=== PATIENT | male | born 1930 | race Caucasian/White ===

== ENCOUNTER 2016-06-09 13:45 | Inpatient (IN) | payer OTHER, MEDICARE ==
[2016-06-09] VITALS (10 sets, daily range): BP systolic 109–124; BP diastolic 52–65; PULSE 69–77; RESP 16–22; TEMP 97.7–98.3; O2SAT 97–100
[~2016-06-09] VITALS: Ht 172.7 cm; Wt 70.0 kg
[~2016-06-09 13:45] MED LIST: APIX2.5T PO; ATOR10TA PO; CALTTAB5 PO; CARV3.12 PO; ECOT81TA2 PO; FERR65TA PO; FURO1TAB93 PO; LEVO.025 PO; LISI-357 PO; PACE200T4 PO; TAB-TAB PO
--- NOTE | 2016-06-09 15:35 | PD ---
HPI Chief Complaint: Respiratory Symptoms Time Seen by Provider: 15:31 Travel History International Travel<30 days: No Contact w/Intl Traveler<30days: No Traveled to known affect area: No History of Present Illness HPI 85-year-old male that presents to the ED for evaluation of shortness of breath with exertion. Patient has a significant history of heart disease including mitral valve as well as aortic valve replacement and surgery. Per patient he has been fine until a week ago when she started having the symptoms. Per patient usually walks pretty frequently to stay healthy but for the past week he 's not been able to as he gets very short of breath. Per patient he been going to the mailbox causes him severe shortness of breath and he has to take a breather. Per patient he has no chest pain. 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 He denies any headache or blurred vision or double vision. He denies any shortness of breath on rest. Per patient right now he is doing okay and has no symptoms. He does take blood thinners. Patient has a history of A. fib as well. Denies any bowel movement or urinary issues. Denies any recent injuries or falls other than about a week ago he hit his right head on a cabinet accidentally much of it until he noticed the next day he had a bruise in the area. He denies any blurry vision or double vision. No head injury. Per patient he was a small bump and nothing more. He denies any pain in this area. He denies any other medical problems at this time. PFSH Past Medical History Hx Anticoagulant Therapy: Yes (Eliquis) Blood Disorders: No Heart Rhythm Problems: Yes (has a pacemaker) Cancer: Yes (SKIN) Cardiovascular Problems: Yes High Cholesterol: Yes Chest Pain: No Congestive Heart Failure: Yes Diminished Hearing: No Endocrine: Yes Gastrointestinal Disorders: No Genitourinary: No Hypertension: Yes Immune Disorder: No Implanted Vascular Access Dvce: Yes Musculoskeletal: Yes Neurologic: No Psychiatric: No Reproductive: No Respiratory: Yes Immunizations Current: No Sleep Apnea: No Thyroid Disease: Yes (HYPOTHYROIDISM) Past Surgical History AICD: No Arteriovenous Shunt: No Body Medical Devices: pacemaker Cardiac Surgery: Yes (PACEMAKER ) Coronary Artery Bypass Graft: Yes (TRIPLE 2006) Genitourinary Surgery: Yes (CIRCUMCISION 2001) Insulin Pump: No Joint Replacement: No Oral Surgery: Yes (TONSILECTOMY 1940) Pacemaker: Yes ([employer]ONICS) Tonsillectomy: Yes (1940) Other Surgery: Yes (AORTIC VALVE REPLACEMENT) Social History Alcohol Use: No Tobacco Use: No Substance Use: No Allergies-Medications (Allergen,Severity, Reaction): Coded Allergies: No Known Allergies (Verified , 06/09/16) Reported Meds & Prescriptions Reported Meds & Active Scripts Active Reported Lisinopril 5 mg (Lisinopril) 5 Mg Tab 1 Tab PO DAILY Lasix (Furosemide) 40 Mg Tab 40 Mg PO DAILY Feosol (Ferrous Sulfate) 65 Mg Tab 325 Mg PO BID GIVE WITH LUNCH AND DINNER Eliquis (Apixaban) 2.5 Mg Tab 2.5 Mg PO BID Ecotrin (Aspirin) 81 Mg Tabec 81 Mg PO DAILY Atorvastatin 10 mg (Atorvastatin Calcium) 10 Mg Tab 1 Tab PO HS Pacerone 200 mg (Amiodarone HCl) 200 Mg Tab 100 Mg PO EVERY OTHER DAY Levothyroxine 25 mcg (Levothyroxine Sodium) 25 Mcg Tab 1 Tab PO DAILY Carvedilol 3.125 mg (Carvedilol) 3.125 Mg Tab 3.125 Mg PO BID Multivitamin (Multivitamins) 1 Tab Tab 1 Tab PO DAILY Caltrate 600 (Calcium Carbonate) Tab 1 Tab PO BID Review of Systems General / Constitutional: No: Fever, Chills, Weight Gain, Weight Loss, Other Eyes: No: Diploplia, Blurred Vision, Photophobia, Drainage, Redness, Foreign Body Sensation, Pain, Tearing, Blind Spots, Visual changes, Blindness, Other HENT: No: Headaches, Vertigo, Lightheadedness, Sore Throat, Rhinitis, Rhinorrhea, Congestion, Nosebleed, Neck Stiffness, Neck Pain, Masses, Gingival Bleeding, Dental Difficulties, Ear Discharge, Earache, Other Cardiovascular: No: Chest Pain or Discomfort, Palpitations, Irregular Rhythm, Tachycardia, Diaphoresis, Syncope, Dyspnea on exertion, Varicosities, Edema, Cyanosis, Varicosities, Phlebitis, Claudication, Other Respiratory: Positive: Shortness of Breath, No: Cough, Wheezing, Sneezing, Orthopnea, Hemoptysis, Stridor, Night Sweats, Pleuritic Pain, Other Gastrointestinal: No: Nausea, Vomiting, Diarrhea, Abdominal Pain, Hematemesis, Hematochezia, Constipation, Changes in Bowel Habits, Indigestion, Dysphagia, Loss of Appetite, Other Genitourinary: No: Urgency, Frequency, Dysuria, Nocturia, Hematuria, Decreased Urinary Output, Oliguria, Hesitancy, Dribbling, Incontinence, Pelvic Pain, Flank Pain, Dyspareunia, Discharge, Dysmenorrhea, Menorrhagia, Metorrhagia, Vaginal Bleeding, Other Musculoskeletal: No: Myalgias, Arthralgias, Limited ROM, Weakness, Cramping, Edema, Pain, Atrophy, Other Skin: No Rash, No Itching, No Dryness, No Lumps, No Hives, No Change in Pigmentation, No Change in nails, No Alopecia, No Lesions, No Breast Lumps, No Breast Tenderness, No Breast Swelling, No Other Neurologic: No: Weakness, Dizziness, Syncope, Focal Abnormalities, Coordination Problem, Tremor, Ataxia, Headache, Change in Mentation, Slurred Speech, Paresthesia, Incontinence, Seizures, Sensory Disturbance, Other Psychiatric: No: Anxiety, Depression, Suicidal Ideations, Disorder of Thought, Mood Disorder, Substance Abuse, Homicidal Ideation, Other Endocrine: No: Heat Intolerance, Cold Intolerance, Polyuria, Polydipsia, Other Hematologic/Lymphatic: No: Easy Bruising, Lymph Node Enlargement, Other Physical Exam Narrative GENERAL: SKIN: Warm and dry. HEAD: Atraumatic. Normocephalic. EYES: Pupils equal and round 4 mm reactive to light and accommodation. No scleral icterus. No injection or drainage. ENT: No nasal bleeding or discharge. Mucous membranes pink and moist. Tongue is midline. No uvula deviation. NECK: Trachea midline. No JVD. CARDIOVASCULAR: Regular rate and rhythm. Systolic murmur noted, S3, S4. RESPIRATORY: No accessory muscle use. Clear to auscultation. Breath sounds equal bilaterally. GASTROINTESTINAL: Abdomen soft, non-tender, nondistended. Hepatic and splenic margins not palpable. MUSCULOSKELETAL: Extremities without clubbing, cyanosis, or edema. No obvious deformities. Full range of motion of the upper and lower extremities bilaterally. 2+ pulses bilaterally. Sensation intact bilaterally. NEUROLOGICAL: Awake and alert. No obvious cranial nerve deficits. Motor grossly within normal limits. Five out of 5 muscle strength in the arms and legs. Normal speech. PSYCHIATRIC: Appropriate mood and affect; insight and judgment normal. Data Data Last Documented VS Vital Signs Date Time Temp Pulse Resp B/P Pulse Ox O2 Delivery O2 Flow Rate FiO2 06/09/16 16:02 99 Room Air 06/09/16 16:01 97.7 70 18 109/55 Orders Electrocardiogram (06/09/16 15:12) Complete Blood Count With Diff (06/09/16 15:12) Basic Metabolic Panel (Bmp) (06/09/16 15:12) Ckmb (Isoenzyme) Profile (06/09/16 15:12) Troponin I (06/09/16 15:12) B-Type Natriuretic Peptide (06/09/16 15:12) Prothrombin Time / Inr (Pt) (06/09/16 15:12) Act Partial Throm Time (Ptt) (06/09/16 15:12) Magnesium (Mg) (06/09/16 15:12) Thyroid Stimulating Hormone (06/09/16 15:12) Chest, Single Ap (06/09/16 15:12) Iv Access Insert/Monitor (06/09/16 15:12) Ecg Monitoring (06/09/16 15:12) Oximetry (06/09/16 15:12) CKMB (06/09/16 15:30) CKMB% (06/09/16 15:30) Labs Laboratory Tests Test 06/09/16 15:30 White Blood Count 5.8 TH/MM3 Red Blood Count 1.83 MIL/MM3 Hemoglobin 5.9 GM/DL Hematocrit 18.0 % Mean Corpuscular Volume 98.4 FL Mean Corpuscular Hemoglobin 32.3 PG Mean Corpuscular Hemoglobin 32.8 % Concent Red Cell Distribution Width 14.7 % Platelet Count 130 TH/MM3 Mean Platelet Volume 10.1 FL Neutrophils (%) (Auto) 79.4 % Lymphocytes (%) (Auto) 11.9 % Monocytes (%) (Auto) 7.9 % Eosinophils (%) (Auto) 0.4 % Basophils (%) (Auto) 0.4 % Neutrophils # (Auto) 4.6 TH/MM3 Lymphocytes # (Auto) 0.7 TH/MM3 Monocytes # (Auto) 0.5 TH/MM3 Eosinophils # (Auto) 0.0 TH/MM3 Basophils # (Auto) 0.0 TH/MM3 CBC Comment DIFF FINAL Differential Comment Prothrombin Time 11.8 SEC Prothromb Time International 1.1 RATIO Ratio Activated Partial 26.6 SEC Thromboplast Time Sodium Level 138 MEQ/L Potassium Level 3.9 MEQ/L Chloride Level 100 MEQ/L Carbon Dioxide Level 31.9 MEQ/L Anion Gap 6 MEQ/L Blood Urea Nitrogen 41 MG/DL Creatinine 1.74 MG/DL Estimat Glomerular Filtration 37 ML/MIN Rate Random Glucose 100 MG/DL Calcium Level 8.4 MG/DL Magnesium Level 2.1 MG/DL Total Creatine Kinase 176 U/L Creatine Kinase MB 1.8 NG/ML Troponin I 0.04 NG/ML Thyroid Stimulating Hormone 5.360 uIU/ML 3rd Gen [facility] Medical Decision Making Medical Screen Exam Complete: Yes Emergency Medical Condition: Yes Medical Record Reviewed: Yes Differential Diagnosis Bowel disease versus atrial fibrillation versus kidney injury versus coronary disease versus electrolyte abnormality versus ACS versus CHF Narrative Course 85-year-old male that presents to the ED for evaluation of shortness of breath with exertion. Patient was properly examined and was found to have signs and symptoms consistent with appears to be possible CHF versus valvular disease versus heart disease versus kidney disease. At this time determinations for labs and imaging. Patient's agrees with plan. Case signed out to attending pending disposition. Pietro Lee Jun 09, 2016 15:35
[2016-06-09 16:01] LABS: AUTOMATED NEUTROPHIL # 4.6 TH/MM3 (1.8-7.7); BASOPHIL % 0.4 % (0.0-2.0); EOSINOPHIL % 0.4 % (0.0-4.0); LYMPH % 11.9 % (9.0-44.0); LYMPHOCYTE # 0.7 TH/MM3 (1.0-4.8); MEAN CELL VOLUME 98.4 FL (80.0-100.0); MEAN CORPUSCULAR HEMOGLOBIN 32.3 PG (27.0-34.0); MEAN CORPUSCULAR HGB CONC 32.8 % (32.0-36.0); MONO % 7.9 % (0.0-8.0); NEUT % 79.4 % (16.0-70.0); PLATELET COUNT 130 TH/MM3 (150-450); RED BLOOD COUNT 1.83 MIL/MM3 (4.50-5.90); RED CELL DISTRIBUTION WIDTH 14.7 % (11.6-17.2); WHITE BLOOD COUNT 5.8 TH/MM3 (4.0-11.0)
[2016-06-09 16:04] LABS: HEMO FLAGS DIFF FINAL
--- NOTE | 2016-06-09 16:09 | RADRPT ---
EXAM DATE/TIME: 06/09/2016 15:22 [facility] COMPARISON: CHEST SINGLE AP, June 13, 2015, 0:28. INDICATIONS : Shortness of breath. MEDICAL HISTORY : None. SURGICAL HISTORY : Pacemaker. Heart valve replacement. ENCOUNTER: Initial ACUITY: 1 day PAIN SCORE: 0/10 LOCATION: Chest FINDINGS: Median sternotomy wires are noted status post cardiac valve replacement. A left subclavian dual lead pacemaker has its tips in the right atrium and right ventricle. There is no pneumothorax. The lungs are clear. Degenerative changes and scoliosis of the thoracolumbar spine are noted. An inferior luke a cava filter is noted. CONCLUSION: 1. No acute cardiopulmonary disease. 2. Degenerative changes and scoliosis of the thoracolumbar spine. Ned Aguilera MD on June 09, 2016 at 15:57 Board Certified Radiologist. This report was verified electronically.
[2016-06-09 16:12] LABS: APTT (PATIENT) 26.6 SEC (24.3-30.1); INTERNATIONAL NORMALIZED RATIO 1.1 RATIO; PROTHROMBIN TIME - PATIENT 11.8 SEC (9.8-11.6)
[2016-06-09 16:13] LABS: ANION GAP 6 MEQ/L (5-15); BICARBONATE 31.9 MEQ/L (21.0-32.0); BLOOD UREA NITROGEN 41 MG/DL (7-18); CHLORIDE 100 MEQ/L (98-107); GLOMERULAR FILTRATION RATE 37 ML/MIN (>89); MAGNESIUM 2.1 MG/DL (1.5-2.5); POTASSIUM 3.9 MEQ/L (3.5-5.1); SODIUM (NA) 138 MEQ/L (136-145)
[2016-06-09 16:23] LABS: CREATINE KINASE 176 U/L (39-308)
[2016-06-09 16:35] LABS: CKMB 1.8 NG/ML (0.5-3.6)
[2016-06-09] MEDS ORDERED: APIX2.5T PO (16:47)
[2016-06-09] MEDS ORDERED: LEVO25TA4 PO (16:50)
[2016-06-09] MEDS ORDERED: MULTTAB67 PO (16:50)
[2016-06-09] MEDS ORDERED: FURO1TAB60 PO (16:50)
[2016-06-09] MEDS ORDERED: AMIO200T PO (16:50)
[2016-06-09] MEDS ORDERED: CARV3.12 PO (16:50)
[2016-06-09] MEDS ORDERED: CALTTAB5 PO (16:50)
[2016-06-09] MEDS ORDERED: ATOR20TA15 PO (16:50)
--- NOTE | 2016-06-09 17:25 | PD ---
Physical Exam Date Seen by Provider: Jun 09, 2016 Time Seen by Provider: 17:21 Narrative 85-year-old male seen in the ambulance haul prior to arrival in the medical pod, by Pietro Lee PA-C. Labs workers performed showing marked anemia with a hemoglobin of 5.9. Patient has a history of anemia in the past requiring transfusion. Patient states the last transfusion had was approximately one year ago. Patient has a history of CHF, as well as replacement of the aortic valve with a bovine valve and history of mitral valve clip as well. Patient has no chest pain or other symptoms. Symptoms have been present for approximately 2 weeks. Data Data Last Documented VS Vital Signs Date Time Temp Pulse Resp B/P Pulse Ox O2 Delivery O2 Flow Rate FiO2 06/09/16 16:50 95 Room Air 06/09/16 16:41 98.1 71 16 124/65 Orders Electrocardiogram (06/09/16 15:12) Complete Blood Count With Diff (06/09/16 15:12) Basic Metabolic Panel (Bmp) (06/09/16 15:12) Ckmb (Isoenzyme) Profile (06/09/16 15:12) Troponin I (06/09/16 15:12) B-Type Natriuretic Peptide (06/09/16 15:12) Prothrombin Time / Inr (Pt) (06/09/16 15:12) Act Partial Throm Time (Ptt) (06/09/16 15:12) Magnesium (Mg) (06/09/16 15:12) Thyroid Stimulating Hormone (06/09/16 15:12) Chest, Single Ap (06/09/16 15:12) Iv Access Insert/Monitor (06/09/16 15:12) Ecg Monitoring (06/09/16 15:12) Oximetry (06/09/16 15:12) CKMB (06/09/16 15:30) CKMB% (06/09/16 15:30) Type And Screen (06/09/16 17:10) Red Blood Cells (Rbc) (06/09/16 17:10) Labs Laboratory Tests Test 06/09/16 15:30 White Blood Count 5.8 TH/MM3 Red Blood Count 1.83 MIL/MM3 Hemoglobin 5.9 GM/DL Hematocrit 18.0 % Mean Corpuscular Volume 98.4 FL Mean Corpuscular Hemoglobin 32.3 PG Mean Corpuscular Hemoglobin 32.8 % Concent Red Cell Distribution Width 14.7 % Platelet Count 130 TH/MM3 Mean Platelet Volume 10.1 FL Neutrophils (%) (Auto) 79.4 % Lymphocytes (%) (Auto) 11.9 % Monocytes (%) (Auto) 7.9 % Eosinophils (%) (Auto) 0.4 % Basophils (%) (Auto) 0.4 % Neutrophils # (Auto) 4.6 TH/MM3 Lymphocytes # (Auto) 0.7 TH/MM3 Monocytes # (Auto) 0.5 TH/MM3 Eosinophils # (Auto) 0.0 TH/MM3 Basophils # (Auto) 0.0 TH/MM3 CBC Comment DIFF FINAL Differential Comment Prothrombin Time 11.8 SEC Prothromb Time International 1.1 RATIO Ratio Activated Partial 26.6 SEC Thromboplast Time Sodium Level 138 MEQ/L Potassium Level 3.9 MEQ/L Chloride Level 100 MEQ/L Carbon Dioxide Level 31.9 MEQ/L Anion Gap 6 MEQ/L Blood Urea Nitrogen 41 MG/DL Creatinine 1.74 MG/DL Estimat Glomerular Filtration 37 ML/MIN Rate Random Glucose 100 MG/DL Calcium Level 8.4 MG/DL Magnesium Level 2.1 MG/DL Total Creatine Kinase 176 U/L Creatine Kinase MB 1.8 NG/ML Troponin I 0.04 NG/ML B-Type Natriuretic Peptide 678 PG/ML Thyroid Stimulating Hormone 5.360 uIU/ML 3rd Gen [facility] Medical Record Reviewed: Yes Supervised Visit with RINA: Yes Differential Diagnosis Symptomatic anemia. History of chronic anemia. History CHF. Narrative Course Patient is medically stable at time of exam. Rectal guaiac exam is performed but no stools in the vault. Guaiac is negative. 2 units of red blood cells are ordered, and type and screen. Call was placed to the hospitalist for admission. 1745 hrs. patient was discussed with the hospitalist who accepted the patient for admission. Diagnosis Primary Impression: Anemia Qualified Code: D64.9 - Anemia, unspecified type Additional Impression: CHF (congestive heart failure) Qualified Code: I50.9 - Congestive heart failure, unspecified congestive heart failure chronicity, unspecified congestive heart failure type Admitting Information Admitting Physician Requests: Admit Condition: Stable Landry Nieto Jun 09, 2016 17:25
[2016-06-09] MEDS ORDERED: SODIUM CHLORIDE 0.9% FLUSH 10 ML FLUSH IV FLUSH PRN (18:00)
[2016-06-09] MEDS ORDERED: NALOXONE HCL 0.4 MG/ML AMP IV PRN (18:00)
[2016-06-09] MEDS ORDERED: ONDANSETRON HCL 4 MG/2 ML VIAL IVP PRN (18:00)
[2016-06-09] MEDS ORDERED: ACETAMINOPHEN 325 MG TAB PO PRN (18:00)
--- NOTE | 2016-06-09 18:38 | HHI.HP ---
cc: Ashwin Farmer MD HPI Service [facility] Primary Care Physician Ashwin Farmer MD Admission Diagnosis Anemia/Hx. CHF/Afib Diagnoses: Chief Complaint: Shortness of breath with exertion Travel History International Travel<30 Days: No Contact w/Intl Traveler <30 Da: No Traveled to Known Affected Are: No History of Present Illness This is an extremely pleasant 85-year-old male patient with past medical history which includes congestive heart failure, aortic valve regurgitation status post bovine aortic valve replacement 2006, mitral valve clipping, hyperlipidemia atrial fibrillation on Eliquis, hypothyroidism, and chronic kidney disease. Patient presents to the emergency department with complained of shortness of breath. Patient reports that 1 to 2 months ago he was able to walk his normal 25-30 minutes per day without any difficulties. Patient reports over the past approximally 2 weeks it has been getting progressively harder to do his walks due to shortness of breath. Patient reports at this point he has difficulty walking to the mailbox and back because of shortness of breath. Patient reports as long as he is sitting still at rest he has no shortness of breath and feels well only gets short of breath with activity. Patient denies any bright red blood per rectum or black tarry stools. Patient believes he had a colonoscopy one to 2 years ago reports the results were normal. Patient proceeded to the emergency department for further evaluation and treatment. He denies associated fevers chills cough congestion. Patient also denies bilateral lower extremity edema, pillow orthopnea, weight gain or chest pain. Patient found to have a hemoglobin of 5.9 with hematocrit of 18.0 rectal exam done by emergency room provider guaiac negative there is no stool present in the vault. Review of Systems Except as stated in HPI: all other systems reviewed are Neg Past Family Social History Past Medical History congestive heart failure, aortic valve regurgitation status post bovine aortic valve replacement 2006, mitral valve clipping, hyperlipidemia atrial fibrillation on Eliquis, hypothyroidism, and chronic kidney disease. Past Surgical History Bovine aortic valve replacement 2007 Mitral valve clipping Cardiac pacemaker placed Tonsillectomy Primary artery bypass graft 3 Reported Medications Multiple Vitamin 1 Tab 1 Tab PO DAILY Lasix (Furosemide) 40 Mg Tab 40 Mg PO DAILY Levothyroxine (Levothyroxine Sodium) 25 Mcg Tab 25 Mcg PO DAILY Carvedilol 3.125 Mg Tab 3.125 Mg PO BID Caltrate 600 (Calcium Carbonate) 1,500 Mg Tab 1 Tab PO BID Atorvastatin (Atorvastatin Calcium) 20 Mg Tab 20 Mg PO HS Amiodarone (Amiodarone HCl) 200 Mg Tab 100 Mg PO EVERY OTHER DAY Eliquis (Apixaban) 2.5 Mg Tab 2.5 Mg PO BID Allergies: Coded Allergies: No Known Allergies (Verified , 06/09/16) Active Ordered Medications Current Medications Medications (Trade) Dose Ordered Sig/[place]air Route Start Time Stop Time Status Last Admin (NS Flush) 2 ml UNSCH PRN IV FLUSH 06/09/16 18:00 (NS Flush) 2 ml BID IV FLUSH 06/09/16 21:00 (Tylenol) 650 mg Q4H PRN PO 06/09/16 18:00 (Zofran Inj) 4 mg Q6H PRN IVP 06/09/16 18:00 (Narcan Inj) 0.4 mg UNSCH PRN IV 06/09/16 18:00 Family History Denies family medical history for dementia Alzheimer's or cancer Social History Denies EtOH use tobacco use or illicit drug use now or in the past Physical Exam Vital Signs Vital Signs Date Time Temp Pulse Resp B/P Pulse Ox O2 Delivery O2 Flow Rate FiO2 06/09/16 16:50 95 Room Air 06/09/16 16:41 98.1 71 16 124/65 97 Room Air 06/09/16 16:02 99 Room Air 06/09/16 16:01 97.7 70 18 109/55 99 Room Air 06/09/16 14:23 98.2 73 16 122/61 100 Physical Exam GENERAL: This is a well-nourished, well-developed patient, does appear pale SKIN: No rashes, ecchymoses or lesions. Cool and dry. HEAD: Atraumatic. Normocephalic. No temporal or scalp tenderness. EYES: Pupils equal round and reactive. Extraocular motions intact. No scleral icterus. No injection or drainage. Pale conjunctiva CARDIOVASCULAR: Regular rate and rhythm with systolic ejection murmur and mitral regurgitation RESPIRATORY: Clear to auscultation. Breath sounds equal bilaterally. No wheezes , rales, or rhonchi. GASTROINTESTINAL: Abdomen soft, non-tender, nondistended. No guarding. MUSCULOSKELETAL: Extremities without clubbing, cyanosis, or edema. No joint tenderness, effusion, or edema noted. No calf tenderness. Negative Homans sign bilaterally. NEUROLOGICAL: Awake and alert. No focal deficits appreciated. Motor and sensory grossly within normal limits. 4-5 out of 5 muscle strength in all muscle groups. Normal speech. Laboratory Laboratory Tests Test 06/09/16 06/09/16 15:30 17:32 White Blood Count 5.8 Red Blood Count 1.83 Hemoglobin 5.9 Hematocrit 18.0 Mean Corpuscular Volume 98.4 Mean Corpuscular Hemoglobin 32.3 Mean Corpuscular Hemoglobin 32.8 Concent Red Cell Distribution Width 14.7 Platelet Count 130 Mean Platelet Volume 10.1 Neutrophils (%) (Auto) 79.4 Lymphocytes (%) (Auto) 11.9 Monocytes (%) (Auto) 7.9 Eosinophils (%) (Auto) 0.4 Basophils (%) (Auto) 0.4 Neutrophils # (Auto) 4.6 Lymphocytes # (Auto) 0.7 Monocytes # (Auto) 0.5 Eosinophils # (Auto) 0.0 Basophils # (Auto) 0.0 CBC Comment DIFF FINAL Differential Comment Prothrombin Time 11.8 Prothromb Time International 1.1 Ratio Activated Partial 26.6 Thromboplast Time Sodium Level 138 Potassium Level 3.9 Chloride Level 100 Carbon Dioxide Level 31.9 Anion Gap 6 Blood Urea Nitrogen 41 Creatinine 1.74 Estimat Glomerular Filtration 37 Rate Random Glucose 100 Calcium Level 8.4 Magnesium Level 2.1 Total Creatine Kinase 176 Creatine Kinase MB 1.8 Troponin I 0.04 B-Type Natriuretic Peptide 678 Thyroid Stimulating Hormone 5.360 3rd Gen Blood Type A POSITIVE Result Diagram: 06/09/16 1530 06/09/16 1530 Imaging Last Impressions Chest X-Ray 06/09/16 1512 Signed Impressions: Service Date/Time: Thursday, June 09, 2016 15:22 - CONCLUSION: 1. No acute cardiopulmonary disease. 2. Degenerative changes and scoliosis of the thoracolumbar spine. Ned Aguilera MD Assessment and Plan Assessment and Plan This is an extremely pleasant 85-year-old male patient with past medical history which includes congestive heart failure, aortic valve regurgitation status post bovine aortic valve replacement 2006, mitral valve clipping, hyperlipidemia atrial fibrillation on Eliquis, hypothyroidism, and chronic kidney disease. Patient since the emergency department for progressive shortness of breath over the past 2 weeks. Found to have a hemoglobin of 5.9 Severe symptomatic anemia- with shortness of breath Echocardiogram 2 units packed red blood cells ordered by emergency room physician H&H every 6 hours Hemoccult stool GI consult Iron profile, B12, reticulocyte count, haptoglobin, LDH Atrial fibrillation Continue amiodarone 100 mg every other day Hold Eliquis Hypothyroidism TSH 5.360 Add-on T4 pending Continue home Synthroid Chronic congestive heart failure does not appear to be in acute exacerbation continue with home Lasix 40 mg daily Continue carvedilol 3.125 mg twice a day DVT prophylaxis with SCDs avoid chemical DVT prophylaxis in light of anemia Discussed with the ER provider, nursing and patient Written by Karey Bullard, acting as scribe for Dr. Bo on 06/09/16 at 18 :48. All or portions of this note were transcribed by MARLA Baum . I, Dr. Milind Bo personally performed the history, physical exam, and medical decision making; and confirmed the accuracy of the information in the transcribed note. Authenticated by Dr. Milind Bo on 06/09/16 at 21:49. Physician Certification 2 Midnight Certification Type: Admission for Inpatient Services Order for Inpatient Services The services are ordered in accordance with Medicare regulations or non- Medicare payer requirements, as applicable. In the case of services not specified as inpatient-only, they are appropriately provided as inpatient services in accordance with the 2-midnight benchmark. Estimated LOS (days): 4 days is the estimated time the patient will need to remain in the hospital, assuming treatment plan goals are met and no additional complications. Post-Hospital Plan: Home Karey Bullard Jun 09, 2016 18:38 Kin Bo DO Jun 09, 2016 21:50
[2016-06-09] MEDS ORDERED: FUROSEMIDE 20 MG/2 ML VIAL IV PUSH ONE (18:45)
[2016-06-09 19:04] LABS: INDIRECT BILIRUBIN 0.4 MG/DL (0.0-0.8); TOTAL BILIRUBIN ADULT 0.5 MG/DL (0.2-1.0)
[2016-06-09 19:15] LABS: RETIC % 7.1 % (0.4-3.0)
[2016-06-09 19:21] LABS: FREE T4 1.08 NG/DL (0.76-1.46); LDL CHOLESTEROL DIRECT 52 MG/DL (0-99); TRANSFERRIN IRON PROFILE 288 MG/DL (200-360)
[2016-06-09 19:22] LABS: REVIEW FLAG FINAL
--- NOTE | 2016-06-09 19:25 | PD ---
Data Data Last Documented VS Vital Signs Date Time Temp Pulse Resp B/P Pulse Ox O2 Delivery O2 Flow Rate FiO2 06/09/16 16:50 95 Room Air 06/09/16 16:41 98.1 71 16 124/65 Orders Electrocardiogram (06/09/16 15:12) Complete Blood Count With Diff (06/09/16 15:12) Basic Metabolic Panel (Bmp) (06/09/16 15:12) Ckmb (Isoenzyme) Profile (06/09/16 15:12) Troponin I (06/09/16 15:12) B-Type Natriuretic Peptide (06/09/16 15:12) Prothrombin Time / Inr (Pt) (06/09/16 15:12) Act Partial Throm Time (Ptt) (06/09/16 15:12) Magnesium (Mg) (06/09/16 15:12) Thyroid Stimulating Hormone (06/09/16 15:12) Chest, Single Ap (06/09/16 15:12) Iv Access Insert/Monitor (06/09/16 15:12) Ecg Monitoring (06/09/16 15:12) Oximetry (06/09/16 15:12) CKMB (06/09/16 15:30) CKMB% (06/09/16 15:30) Type And Screen (06/09/16 17:10) Red Blood Cells (Rbc) (06/09/16 17:10) Admit Order (Ed Use Only) (06/09/16 17:47) Labs Laboratory Tests Test 06/09/16 06/09/16 15:30 17:32 White Blood Count 5.8 TH/MM3 Red Blood Count 1.83 MIL/MM3 Hemoglobin 5.9 GM/DL Hematocrit 18.0 % Mean Corpuscular Volume 98.4 FL Mean Corpuscular Hemoglobin 32.3 PG Mean Corpuscular Hemoglobin 32.8 % Concent Red Cell Distribution Width 14.7 % Platelet Count 130 TH/MM3 Mean Platelet Volume 10.1 FL Neutrophils (%) (Auto) 79.4 % Lymphocytes (%) (Auto) 11.9 % Monocytes (%) (Auto) 7.9 % Eosinophils (%) (Auto) 0.4 % Basophils (%) (Auto) 0.4 % Neutrophils # (Auto) 4.6 TH/MM3 Lymphocytes # (Auto) 0.7 TH/MM3 Monocytes # (Auto) 0.5 TH/MM3 Eosinophils # (Auto) 0.0 TH/MM3 Basophils # (Auto) 0.0 TH/MM3 CBC Comment DIFF FINAL Differential Comment Reticulocyte Count 7.1 % Absolute Reticulocyte Count 128.1 MIL/L Prothrombin Time 11.8 SEC Prothromb Time International 1.1 RATIO Ratio Activated Partial 26.6 SEC Thromboplast Time Sodium Level 138 MEQ/L Potassium Level 3.9 MEQ/L Chloride Level 100 MEQ/L Carbon Dioxide Level 31.9 MEQ/L Anion Gap 6 MEQ/L Blood Urea Nitrogen 41 MG/DL Creatinine 1.74 MG/DL Estimat Glomerular Filtration 37 ML/MIN Rate Random Glucose 100 MG/DL Calcium Level 8.4 MG/DL Magnesium Level 2.1 MG/DL Iron Level 22 MCG/DL Total Iron Binding Capacity 403 MCG/DL Percent Iron Saturation 5.5 % Total Bilirubin 0.5 MG/DL Direct Bilirubin 0.1 MG/DL Indirect Bilirubin 0.4 MG/DL Aspartate Amino Transf 25 U/L (AST/SGOT) Alanine Aminotransferase 20 U/L (ALT/SGPT) Alkaline Phosphatase 51 U/L Lactate Dehydrogenase 275 U/L Total Creatine Kinase 176 U/L Creatine Kinase MB 1.8 NG/ML Troponin I 0.04 NG/ML B-Type Natriuretic Peptide 678 PG/ML Total Protein 5.3 GM/DL Albumin 2.7 GM/DL LDL Cholesterol Direct 52 MG/DL Vitamin B12 Level 548 PG/ML Free Thyroxine 1.08 NG/DL Thyroid Stimulating Hormone 5.360 uIU/ML 3rd Gen Blood Type A POSITIVE Antibody Screen NEGATIVE Crossmatch Leukocyte-Reduced Red Blood Cells Blood Bank Comment [facility] Supervised Visit with RINA: Yes Narrative Course The history, exam, and medical decision-making in the associated midlevel provider note were completed with my assistance. I reviewed and agree with the findings presented. I attest that I had a [id number] encounter with the patient on the same day, and personally performed and documented my assessment and findings in the medical record. *My assessment and Findings: This is an 85-year-old male who presents to the emergency department with shortness of breath and dyspnea on exertion. He was found to have a hemoglobin of 5.9 which is likely the source of his symptoms. He was admitted within the past year for similar symptoms and had an endoscopy and colonoscopy which demonstrated some diverticulosis but no active source of bleeding. Patient will be admitted to the hospital for transfusion. He does have congestive heart failure and he was ordered Lasix as well and will be transfused at a slow rate. Diagnosis Primary Impression: Anemia Qualified Code: D64.9 - Anemia, unspecified type Additional Impression: CHF (congestive heart failure) Qualified Code: I50.9 - Congestive heart failure, unspecified congestive heart failure chronicity, unspecified congestive heart failure type Condition: Stable Yuni Vickers MD Jun 09, 2016 19:25
[2016-06-09] MEDS: SODIUM CHLORIDE 0.9% FLUSH 10 ML FLUSH IV FLUSH SCH (21:00)
[2016-06-09] MEDS: CARVEDILOL 3.125 MG TAB PO SCH (21:00)
[2016-06-09] MEDS: ATORVASTATIN 20 MG TAB PO SCH (21:00)
[2016-06-10] MEDS: CALCIUM/VITAMIN D 250 MG/125 U TAB PO SCH ×3 (00:02→20:23)
[2016-06-10 01:57] VITALS: BP 99/54; PULSE 70; RESP 14; TEMP 97.9; O2SAT 96
[2016-06-10 04:51] VITALS: BP 97/57; PULSE 72; RESP 14; TEMP 98; O2SAT 93
[2016-06-10] MEDS: LEVOTHYROXINE SODIUM 25 MCG TAB PO SCH (05:26)
[2016-06-10 07:54] LABS: AUTOMATED NEUTROPHIL # 4.4 TH/MM3 (1.8-7.7); BASOPHIL % 0.5 % (0.0-2.0); EOSINOPHIL # 0.1 TH/MM3 (0-0.4); HEMATOCRIT 23.6 % (39.0-51.0); HEMO FLAGS DIFF FINAL; LYMPH % 11.2 % (9.0-44.0); LYMPHOCYTE # 0.6 TH/MM3 (1.0-4.8); MEAN CORPUSCULAR HEMOGLOBIN 31.5 PG (27.0-34.0); MEAN CORPUSCULAR HGB CONC 34.6 % (32.0-36.0); MONO % 10.2 % (0.0-8.0); NEUT % 77.1 % (16.0-70.0); PLATELET COUNT 108 TH/MM3 (150-450); RED BLOOD COUNT 2.59 MIL/MM3 (4.50-5.90); RED CELL DISTRIBUTION WIDTH 16.5 % (11.6-17.2); WHITE BLOOD COUNT 5.7 TH/MM3 (4.0-11.0)
[2016-06-10 08:00] VITALS: BP 120/62; PULSE 67; RESP 17; TEMP 97.1; O2SAT 100
[2016-06-10 08:09] LABS: POTASSIUM 3.9 MEQ/L (3.5-5.1)
--- NOTE | 2016-06-10 08:35 | HHI.PR ---
Subjective Remarks Follow up for Anemia. Mr. Mccallum is doing well. No chest pain, shortness of breath, fever, chills. Objective Vitals Vital Signs Date Time Temp Pulse Resp B/P Pulse Ox O2 Delivery O2 Flow Rate FiO2 06/10/16 08:00 97.1 67 17 120/62 100 06/10/16 04:51 98.0 72 14 97/57 93 06/10/16 01:57 97.9 70 14 99/54 96 06/09/16 22:15 97.8 69 20 113/52 100 06/09/16 21:26 73 16 112/63 06/09/16 21:03 98.3 76 16 112/63 99 Room Air 06/09/16 21:00 77 20 112/63 98 06/09/16 19:13 98.2 74 22 111/59 97 Room Air 06/09/16 18:45 100 Room Air 06/09/16 18:45 98.1 74 16 111/63 06/09/16 16:50 95 Room Air 06/09/16 16:41 98.1 71 16 124/65 97 Room Air 06/09/16 16:02 99 Room Air 06/09/16 16:01 97.7 70 18 109/55 99 Room Air 06/09/16 14:23 98.2 73 16 122/61 100 I/O 06/09/16 06/09/16 06/09/16 06/10/16 06/10/16 06/10/16 07:00 15:00 23:00 07:00 15:00 23:00 Intake Total 0 ml Output Total 600 ml Balance -600 ml Intake Oral 0 ml Output Urine Total 600 ml Result Diagram: 06/10/1618 06/10/16 0718 Imaging Last Impressions Chest X-Ray 06/09/16 1512 Signed Impressions: Service Date/Time: Thursday, June 09, 2016 15:22 - CONCLUSION: 1. No acute cardiopulmonary disease. 2. Degenerative changes and scoliosis of the thoracolumbar spine. Ned Aguilera MD Objective Remarks GENERAL: AOx3, NAD SKIN: Warm and dry. HEAD: Normocephalic. EYES: No scleral icterus. No injection or drainage. NECK: Supple, trachea midline. No JVD or lymphadenopathy. CARDIOVASCULAR: Regular rate and rhythm without murmurs, gallops, or rubs. RESPIRATORY: Breath sounds equal bilaterally. No accessory muscle use. GASTROINTESTINAL: Abdomen soft, non-tender, nondistended. MUSCULOSKELETAL: No cyanosis, or edema. BACK: Nontender without obvious deformity. No CVA tenderness. Procedures Echo 06/11/2015 - Left ventricle: The cavity size was normal. Wall thickness was normal. Systolic function was at the lower limits of normal. The estimated ejection fraction was 50%. Wall motion was normal; there were no regional wall motion abnormalities. - Aortic valve: A bioprosthesis was present. - Mitral valve: MV clip Mild regurgitation. - Right ventricle: The cavity size was moderately dilated. Wall thickness was normal. - Right atrium: The atrium was dilated. - Tricuspid valve: Moderate-severe regurgitation. - Pulmonary arteries: Systolic pressure was moderately to severely increased. PA peak pressure: 68mm Hg (S). A/P Assessment and Plan This is an extremely pleasant 85-year-old male patient with past medical history which includes congestive heart failure, aortic valve regurgitation status post bovine aortic valve replacement 2006, mitral valve clipping, hyperlipidemia atrial fibrillation on Eliquis, hypothyroidism, and chronic kidney disease. Patient since the emergency department for progressive shortness of breath over the past 2 weeks. Found to have a hemoglobin of 5.9. Patient received two units of PRBCs. Severe symptomatic anemia- with shortness of breath Probable Iron deficiency anemia likely due to GI blood loss Echocardiogram shows EF 50%. s/p 2 units packed red blood cells Hemoccult stool pending. GI consult --> EGD/Colonoscopy on Sunday06/12/2016. Iron profile, B12, reticulocyte count, haptoglobin, LDH indicate Iron deficiency anemia. No significant hemolysis. Discussed with Dr. oMntaño, we will consult him for further input and future need for possible bone marrow bx. Atrial fibrillation Continue amiodarone 100 mg every other day Hold Eliquis Hypothyroidism TSH 5.360 T4 within normal range. Continue home Synthroid Chronic congestive heart failure does not appear to be in acute exacerbation continue with home Lasix 40 mg daily Continue carvedilol 3.125 mg twice a day Full code. SCDs. Continue to hold Apixaban due to probable GI blood loss. Kin Bo DO Jun 10, 2016 08:35
[2016-06-10] MEDS: CARVEDILOL 3.125 MG TAB PO SCH ×2 (09:00→20:22)
[2016-06-10] MEDS: SODIUM CHLORIDE 0.9% FLUSH 10 ML FLUSH IV FLUSH SCH ×2 (09:00→20:24)
[2016-06-10] MEDS: FUROSEMIDE 40 MG TAB PO SCH (09:36)
--- NOTE | 2016-06-10 10:35 | PD.CONS ---
HPI History of Present Illness This is a very pleasant 85 year old male patient with past medical history which includes congestive heart failure, bovine aortic valve replacement 2007, mitral valve clipping, hyperlipidemia atrial fibrillation on Eliquis, hypothyroidism, and chronic kidney disease who presents to the ED for evaluation of shortness of breath on exertion. Patient reports that 1 to 2 months ago he was able to walk his normal 25-30 minutes per day without any difficulties, but over the past 2 weeks, it has been progressively more difficult to walk and lately, he would have shortness of breath walking to the mail box. Upon arrival, labs revealed hgb of 5.9. Patient does bruise easily, he has a bruise around the right eye due to bumping into an object. He denies nausea, vomiting, hematemesis, abdomen pain, wt loss, hematochezia, or melena. He was evaluated by our GI services in 2014 and under went EGD/colonoscopy. S/ P EGD (06/01/14) -----> Normal EGD. S/P Colonoscopy (06/02/14)---> diverticulosis in the sigmoid (moderate); internal mild hemorrhoids. 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 He was placed on iron and was advised to monitor hh, last hgb on 01/2016 was 13.1. (Hannah Mcclellan) PFSH Past Medical History congestive heart failure, aortic valve regurgitation status post bovine aortic valve replacement 2006, mitral valve clipping, hyperlipidemia atrial fibrillation on Eliquis, hypothyroidism, and chronic kidney disease. Past Surgical History Bovine aortic valve replacement 2007 Mitral valve clipping Cardiac pacemaker placed Tonsillectomy Primary artery bypass graft 3 (Hannah Mcclellan) Coded Allergies: No Known Allergies (Verified , 06/09/16) Medications Current Medications Medications (Trade) Dose Ordered Sig/Adair Route Start Time Stop Time Status Last Admin (NS Flush) 2 ml UNSCH PRN IV FLUSH 06/09/16 18:00 (NS Flush) 2 ml BID IV FLUSH 06/09/16 21:00 06/10/16 09:00 (Tylenol) 650 mg Q4H PRN PO 3/24/17 18:00 (Zofran Inj) 4 mg Q6H PRN IVP 06/09/16 18:00 (Narcan Inj) 0.4 mg UNSCH PRN IV 06/09/16 18:00 (Lipitor) 20 mg HS PO 06/09/16 21:00 (Coreg) 3.125 mg BID PO 06/09/16 21:00 (Lasix) 40 mg DAILY PO 06/10/16 09:00 06/10/16 09:36 (Synthroid) 25 mcg DAILY@06 PO 06/10/16 06:00 06/10/16 05:26 (Oscal-D 250-125) 500 mg BID PO 06/09/16 21:00 06/10/16 09:36 Family History Non contributory Social History Denies EtOH use tobacco use or illicit drug use now or in the past (Hannah Mcclellan) Review of Systems Constitutional: DENIES: Chills Endocrine: DENIES: Polyuria Eyes: DENIES: Double Vision Ears, nose, mouth, throat: DENIES: Hoarseness Respiratory: COMPLAINS OF: Shortness of breath Cardiovascular: DENIES: Lower Extremity Edema Gastrointestinal: DENIES: Abdominal pain, Black stools, Bloody stools, Constipation, Diarrhea, Nausea, Vomiting, Difficulty Swallowing, Anorexia, Swelling of Abdomen, Heartburn, Hematemesis Genitourinary: DENIES: Hematuria Musculoskeletal: DENIES: Neck pain Integumentary: DENIES: Jaundice Hematologic/lymphatic: COMPLAINS OF: Bruising Immunologic/allergic: DENIES: Eczema Neurologic: DENIES: Abnormal gait Psychiatric: DENIES: Anxiety (Hannah Mcclellan) GI Exam Vitals I&O Vital Signs Date Time Temp Pulse Resp B/P Pulse Ox O2 Delivery O2 Flow Rate FiO2 06/10/16 08:00 97.1 67 17 120/62 100 06/10/16 04:51 98.0 72 14 97/57 93 06/10/16 01:57 97.9 70 14 99/54 96 06/09/16 22:15 97.8 69 20 113/52 100 06/09/16 21:26 73 16 112/63 06/09/16 21:03 98.3 76 16 112/63 99 Room Air 06/09/16 21:00 77 20 112/63 98 06/09/16 19:13 98.2 74 22 111/59 97 Room Air 06/09/16 18:45 100 Room Air 06/09/16 18:45 98.1 74 16 111/63 06/09/16 16:50 95 Room Air 06/09/16 16:41 98.1 71 16 124/65 97 Room Air 06/09/16 16:02 99 Room Air 06/09/16 16:01 97.7 70 18 109/55 99 Room Air 06/09/16 14:23 98.2 73 16 122/61 100 I/O 06/09/16 06/09/16 06/09/16 06/10/16 06/10/16 06/10/16 07:00 15:00 23:00 07:00 15:00 23:00 Intake Total 0 ml Output Total 600 ml Balance -600 ml Intake Oral 0 ml Output Urine Total 600 ml Imaging Last Impressions Chest X-Ray 06/09/16 1512 Signed Impressions: Service Date/Time: Thursday, June 09, 2016 15:22 - CONCLUSION: 1. No acute cardiopulmonary disease. 2. Degenerative changes and scoliosis of the thoracolumbar spine. Ned Aguilera MD Laboratory Test 06/09/16 06/09/16 06/10/16 15:30 17:32 07:18 White Blood Count 5.8 TH/MM3 5.7 TH/MM3 Red Blood Count 1.83 MIL/MM3 2.59 MIL/MM3 Hemoglobin 5.9 GM/DL 8.2 GM/DL Hematocrit 18.0 % 23.6 % Mean Corpuscular Volume 98.4 FL 91.0 FL Mean Corpuscular Hemoglobin 32.3 PG 31.5 PG Mean Corpuscular Hemoglobin 32.8 % 34.6 % Concent Red Cell Distribution Width 14.7 % 16.5 % Platelet Count 130 TH/MM3 108 TH/MM3 Mean Platelet Volume 10.1 FL 9.7 FL Neutrophils (%) (Auto) 79.4 % 77.1 % Lymphocytes (%) (Auto) 11.9 % 11.2 % Monocytes (%) (Auto) 7.9 % 10.2 % Eosinophils (%) (Auto) 0.4 % 1.0 % Basophils (%) (Auto) 0.4 % 0.5 % Neutrophils # (Auto) 4.6 TH/MM3 4.4 TH/MM3 Lymphocytes # (Auto) 0.7 TH/MM3 0.6 TH/MM3 Monocytes # (Auto) 0.5 TH/MM3 0.6 TH/MM3 Eosinophils # (Auto) 0.0 TH/MM3 0.1 TH/MM3 Basophils # (Auto) 0.0 TH/MM3 0.0 TH/MM3 CBC Comment DIFF FINAL DIFF FINAL Differential Comment Reticulocyte Count 7.1 % Absolute Reticulocyte Count 128.1 MIL/L Haptoglobin 76 MG/DL Prothrombin Time 11.8 SEC Prothromb Time International 1.1 RATIO Ratio Activated Partial 26.6 SEC Thromboplast Time Sodium Level 138 MEQ/L 143 MEQ/L Potassium Level 3.9 MEQ/L 3.9 MEQ/L Chloride Level 100 MEQ/L 105 MEQ/L Carbon Dioxide Level 31.9 MEQ/L 32.0 MEQ/L Anion Gap 6 MEQ/L 6 MEQ/L Blood Urea Nitrogen 41 MG/DL 38 MG/DL Creatinine 1.74 MG/DL 1.68 MG/DL Estimat Glomerular Filtration 37 ML/MIN 39 ML/MIN Rate Random Glucose 100 MG/DL 91 MG/DL Calcium Level 8.4 MG/DL 8.6 MG/DL Magnesium Level 2.1 MG/DL Iron Level 22 MCG/DL Total Iron Binding Capacity 403 MCG/DL Percent Iron Saturation 5.5 % Total Bilirubin 0.5 MG/DL Direct Bilirubin 0.1 MG/DL Indirect Bilirubin 0.4 MG/DL Aspartate Amino Transf 25 U/L (AST/SGOT) Alanine Aminotransferase 20 U/L (ALT/SGPT) Alkaline Phosphatase 51 U/L Lactate Dehydrogenase 275 U/L Total Creatine Kinase 176 U/L Creatine Kinase MB 1.8 NG/ML Troponin I 0.04 NG/ML B-Type Natriuretic Peptide 678 PG/ML Total Protein 5.3 GM/DL Albumin 2.7 GM/DL LDL Cholesterol Direct 52 MG/DL Vitamin B12 Level 548 PG/ML Free Thyroxine 1.08 NG/DL Thyroid Stimulating Hormone 5.360 uIU/ML 3rd Gen Blood Type A POSITIVE Antibody Screen NEGATIVE Crossmatch Leukocyte-Reduced Red Blood Cells Blood Bank Comment Physical Examination HEENT: normocephalic; atraumatic; no jaundice. bruise around the right eye NECK: Neck is supple, no JVD, no lymphadenopathy. CHEST: Chest is clear to auscultation and percussion. CARDIAC: irregular ABDOMEN: Soft, nondistended, nontender; no hepatosplenomegaly; bowel sounds are present in all four quadrants. EXTREMITIES: No clubbing, cyanosis, or edema. SKIN: Normal; no rash; no jaundice. 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 (Hannah Mcclellan) Assessment and Plan Plan - Severe anemia of 5.9 - no active bleeding, S/P 2 units PRBC, H/H 8.2/23.6. S/P EGD (06/01/14) -----> Normal EGD. S/P Colonoscopy (06/02/14)---> diverticulosis in the sigmoid (moderate); internal mild hemorrhoids. SBFT in 2014 unremarkable. 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 He was placed on iron and was advised to monitor hh, last hgb on 01/2016 was 13.1. No active bleeding. - Afib, on chronic anticoagulation- Eliquis - Dyspnea- most likely secondary to anemia - Chronic kidney disease, CAD per primary. Plan - Heart healthy diet - EGD/colonoscopy on Sunday - Clear liquids in the am - Golytley tomorr - NPO Sunday night - PPI - Monitor HH - Transfuse as needed - Pt seen and examined by Dr. Watkins and myself and this note is written on her behalf (Hannah Mcclellan) Physician Comments seen, examined agree with above heart healthy diet today (Echo Watkins MD) Hannah Mcclellan Jun 10, 2016 10:35 Echo Watkins MD Jun 10, 2016 11:15 Echo Watkins MD Jun 10, 2016 11:15
[2016-06-10 12:00] VITALS: BP 106/57; PULSE 71; RESP 16; TEMP 97.3; O2SAT 96
[2016-06-10 16:00] VITALS: BP 103/59; PULSE 74; RESP 17; TEMP 98.3; O2SAT 96
--- NOTE | 2016-06-10 17:28 | EKG ---
Date Performed: 06/09/2016 Time Performed: 15:49:41 PTAGE: 85 years EK% AV sequential pacing MARKED ST ELEVATION, CONSIDER LATERAL INJURY ACUTE [place] red to PREVIOUS TRACING , patient is no longer in atrial tachycardia INTERPRETATION BASED ON A D EFAULT AGE OF 39 YEARS PREVIOUS TRACIN06/12/2015 15.10 DOCTOR: Keron Valerio Interpretating Date/Time 06/10/2016 17:26:29
[2016-06-10 17:36] LABS: HEMATOCRIT 24.5 % (39.0-51.0); REVIEW FLAG FINAL
[2016-06-10 20:00] VITALS: BP 96/56; PULSE 67; RESP 20; TEMP 97.7; O2SAT 96
--- NOTE | 2016-06-10 20:00 | EC ---
Study Study Date:06/10/2016 STUDY CONCLUSIONS SUMMARY - Left ventricle: The cavity size was normal. Wall thickness was normal. Systolic function was at the lower limits of normal. The estimated ejection fraction was 50%. Wall motion was normal; there were no regional wall motion abnormalities. - Aortic valve: A bioprosthesis was present. - Mitral valve: MV clip Mild regurgitation. - Right ventricle: The cavity size was moderately dilated. Wall thickness was normal. - Right atrium: The atrium was dilated. - Tricuspid valve: Moderate-severe regurgitation. - Pulmonary arteries: Systolic pressure was moderately to severely increased. PA peak pressure: 68mm Hg (S). If LV function is below 40, please consider prescribing an ACEI or ARB or document rationale for non-use. PROCEDURE DATA STUDY STATUS: Elective. Procedure: Transthoracic echocardiography. Image quality was good. Scanning was performed from the parasternal, apical, and subcostal acoustic windows. Study completion: The patient tolerated the procedure well. Transthoracic echocardiography. M-mode, complete 2D, complete spectral Doppler, and color Doppler. Height: Height: 68in. Weight: Weight: 153.7lb. Body mass index: BMI: 23.4kg/m^2. Body surface area: BSA: 1.83m^2. Patient status: Inpatient. CARDIAC ANATOMY LEFT VENTRICLE: The cavity size was normal. Wall thickness was normal. Systolic function was at the lower limits of normal. The estimated ejection fraction was 50%. Wall motion was normal; there were no regional wall motion abnormalities. AORTIC VALVE: A bioprosthesis was present. Doppler: Transvalvular velocity was within the normal range. There was no stenosis. No regurgitation. Valve area: 0.97cm^2(VTI). Indexed valve area: 0.53cm^2/m^2 (VTI). Valve area: 0.77cm^2 (Vmax). Indexed valve area: 0.42cm^2/m^2 (Vmax). Mean gradient: 19mm Hg (S). Peak gradient: 32mm Hg (S). AORTA: Aortic root: The aortic root was normal in size. MITRAL VALVE: MV clip Doppler: Transvalvular velocity was within the normal range. There was no evidence for stenosis. Mild regurgitation. Valve area by pressure half-time: 1.37cm^2. Indexed valve area by pressure half-time: 0.75cm^2/m^2. Valve area by continuity equation (using LVOT flow): 1.08cm^2. Indexed valve area by continuity equation (using LVOT flow): 0.59cm^2/m^2. Mean gradient: 3mm Hg (D). Peak gradient: 7mm Hg (D). LEFT ATRIUM: The atrium was normal in size. RIGHT VENTRICLE: The cavity size was moderately dilated. Wall thickness was normal. PULMONIC VALVE: Doppler: Transvalvular velocity was within the normal range. There was no evidence for stenosis. No regurgitation. TRICUSPID VALVE: Structurally normal valve. Doppler: Transvalvular velocity was within the normal range. Moderate-severe regurgitation. PULMONARY ARTERY: The main pulmonary artery was normal-sized. Systolic pressure was moderately to severely increased. RIGHT ATRIUM: The atrium was dilated. PERICARDIUM: There was no pericardial effusion. SYSTEMIC VEINS: Inferior vena cava: The vessel was normal in size. Patient weight: 153.7lb _Ejection fraction:_ 65-75% _Fractional shortening:_ 32% up to 5Kg 5-11.5Kg 11.6-22.9Kg 23-45Kg 45-57Kg Aortic Root 7-13 <17 13-22 17-27 17-27 LA diam 6-13 <23 24-38 33-47 37-40 RVID 10-17 7-15 7-15 7-18 8-17 LVIDd 12-22 <32 24-38 33-47 37-40 LVPW 2-4 3-6 5-7 6-8 7-8 IVS 2-4 3-6 5-7 6-8 7-8 BASIC MEASUREMENTS ADULT NORMAL Left ventricle LV internal dimension, ED, chordal 45.3 mm 43-52 level, PLAX LV internal dimension, ES, chordal 37.5 mm 23-38 level, PLAX Fractional shortening, chordal level, *17 % >29 PLAX LV posterior wall thickness, ED 8.91 mm IVS/LVPW ratio, ED 0.94 <1.3 Ventricular septum Septal thickness, ED 8.39 mm Aorta Root diameter, ED 33 mm Left atrium Anterior-posterior dimension 28 mm Anterior-posterior dimension index 1.53 cm/m^2 <2.2 DOPPLER MEASUREMENTS ADULT NORMAL Main pulmonary artery Pressure, S *68 mm Hg =30 Aortic valve Peak velocity, S 284 cm/s Mean velocity, S 197 cm/s VTI, S 41.3 cm Mean gradient, S 19 mm Hg Peak gradient, S 32 mm Hg Valve area, VTI 0.97 cm^2 Valve area index, VTI 0.53 cm^2/m^2 Valve area, Vmax 0.77 cm^2 Valve area index, Vmax 0.42 cm^2/m^2 Mitral valve Peak E-wave velocity 97.7 cm/s Peak A-wave velocity 101 cm/s Mean velocity, D 82.6 cm/s Deceleration time *412 ms 150-230 Pressure half-time 161 ms Mean gradient, D 3 mm Hg Peak gradient, D 7 mm Hg Peak E/A ratio 1 Valve area, pressure half-time 1.37 cm^2 Valve area index, pressure half-time 0.75 cm^2/m^2 Valve area, LVOT continuity 1.08 cm^2 Valve area index, LVOT continuity 0.59 cm^2/m^2 Tricuspid valve Regurgitant peak velocity 372 cm/s Peak RV-RA gradient, S 55 mm Hg Maximal regurgitant velocity 372 cm/s Systemic veins Estimated CVP 15 mm Hg Right ventricle RV pressure, S *70 mm Hg <30 Pulmonic valve Peak velocity, S 62.4 cm/s LEGEND: Mean values are shown as u=mean value. Asterisk (*) ledbetter values outside specified normal range. Prepared and signed by Amy Martinez [id number]
[2016-06-10] MEDS: ATORVASTATIN 20 MG TAB PO SCH (20:22)
[2016-06-10] MEDS: PANTOPRAZOLE SOD 40 MG DELAYED RELEASE TAB PO SCH (20:24)
--- NOTE | 2016-06-10 20:32 | MB ---
cc: KARIME HUI DATE OF CONSULTATION 06/10/16 REASON FOR CONSULTATION Anemia. PATIENT PROFILE The patient is an 85-year white male. He has been twice. He is . He has two children, both daughters. He was born in [place]. 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 He does not smoke and does not drink. He lives alone and is very independent. HISTORY OF PRESENT ILLNESS The patient is an 85-year-old male who I am consulted to see because of anemia. Over the past four weeks, he became increasingly weak and short of breath. He went to the emergency room and had a CBC and platelet count 06/09/16. Hemoglobin 5.9, hematocrit 18, white count is 5800 and platelets 170,000. The differential is unremarkable. He was admitted because of the above problem. Other relevant studies have included a retic count of 7%, with the absolute retic count 128. A serum haptoglobin is 76. He has a mild degree of chronic renal failure, BUN is 38, creatinine is 1.68. Total bilirubin is 0.5, direct bilirubin 0.1 and indirect bilirubin 0.4. A serum iron is 22, TIBC is 403, saturations 5.5%. A B12 level is 548. He has had iron deficiency anemia in the past. In May of 2014, he had a normal upper endoscopy and he had a colonoscopy which showed diverticulosis and internal hemorrhoids. He had a small bowel follow-through which was normal. He also had a pill capsule endoscopy and was found to have mild gastritis and a small AVM. He was placed on oral iron and took this for a number of months and stopped when the hemoglobin became normal. On 06/13/2015, hemoglobin was 11.7, white count 12,000 and platelets 106,000. Today after receiving a transfusion, hemoglobin is 8.2, white count 5700, platelets 108,000. The MCV is 91. The differential is unremarkable. PAST SURGICAL HISTORY 1. Bovine aortic valve replacement 2006 2. Mitral valve clipping 3. Cardiac pacemaker 4. Tonsillectomy 5. Coronary artery bypass surgery grafting in 2006. PAST MEDICAL HISTORY 1. Congestive heart failure 2. History of aortic regurgitation with valve replacement 2006 3. History of atrial fibrillation 4. Pacemaker placement 5. Hypothyroidism 6. Mild chronic renal failure. ALLERGIES No known allergies. MEDICATIONS Prior to admission - 1. Amiodarone 2. Apixaban 2.5 mg p.o. b.i.d. 3. atorvastatin 20 mg p.o. at bedtime 4. Calcium carbonate 5. Coreg 6. Lasix 40 mg a day. 7. Levothyroxine 8. Multivitamins. REVIEW OF SYSTEMS VISION: He has glasses, had cataracts. Hearing is fine. CARDIOVASCULAR: No chest pain, palpitations, orthopnea, PND. RESPIRATORY: Notable for 3-4 weeks of exertional shortness of breath. GI: He denies melena, hematochezia, hematemesis, weight loss, dysphagia. : No dysuria, frequency. MUSCULOSKELETAL: No bone pain. SKIN: Unremarkable. NEUROLOGIC: No focal weakness. PSYCHIATRIC: No problems. PHYSICAL EXAMINATION GENERAL: A slender well-appearing male. VITAL SIGNS: Blood pressure 103/60, respiratory rate 17, pulse 74, afebrile. O2 sat 96%. HEENT: Head is normocephalic. Sclerae and conjunctivae are normal. Oropharynx unremarkable. No cervical, supraclavicular, axillary or inguinal adenopathy. HEART: Regular rhythm, 2/6 systolic murmur. LUNGS: Clear. ABDOMEN: Soft. No hepatosplenomegaly, masses or tenderness. EXTREMITIES: No edema MUSCULOSKELETAL: No bone pain. NEUROLOGIC: No weakness. The patient has a pacemaker. ASSESSMENT The patient is an 85-year-old male who had a hemoglobin of 11.7 on 06/13/2015 and a year later hemoglobin is 5.9. He has had a previous history of iron deficiency anemia. His current laboratory studies with an iron of 22, TIBC of 403 and saturation of 5% or consistent with iron deficiency anemia. Surprisingly, the MCV is normal in the face of a normal B12 level. I am concerned that he may have had acute GI bleed to bring the hemoglobin down significantly before he could develop a low MCV. He does have an artificial valve but there is no evidence of hemolysis with a haptoglobin of 76. The absolute retic count is not elevated and the total bilirubin is 0.9, and LDH is minimally elevated at 275. This does not suggest any significant degree of hemolysis. RECOMMENDATIONS 1. Given his age of 85 and previous cardiac history, would considered transfusing to a hemoglobin of approximately nine. 2. Would resume oral iron 325 mg one p.o. b.i.d. for at least three months at 1 tablet a day 3. If upper and lower endoscopy are unrevealing then one can proceed with a bone marrow aspirate and biopsy or simply see what happens with time and, if the anemia recurs after adequate iron supplementation and without evidence of bleeding, then do a bone marrow aspirate and biopsy at that time. It is not likely that he has a myelodysplasia as the white count is normal and, although he has mild thrombocytopenia, this has been present for many years and can hardly be considered a new event. I await the results of the upper and lower endoscopy. Stools have been ordered for hemoccult. MD DOUGLAS River/ /5:10 PM /8:04 PM RADHA
[2016-06-11] VITALS (7 sets, daily range): BP systolic 98–127; BP diastolic 51–80; PULSE 70–89; RESP 16–20; TEMP 96.6–98.3; O2SAT 94–99
[2016-06-11 05:01] LABS: HEMATOCRIT 22.4 % (39.0-51.0); REVIEW FLAG FINAL
[2016-06-11] MEDS: LEVOTHYROXINE SODIUM 25 MCG TAB PO SCH (05:31)
[2016-06-11] MEDS: CARVEDILOL 3.125 MG TAB PO SCH ×2 (08:59→20:42)
[2016-06-11] MEDS: SODIUM CHLORIDE 0.9% FLUSH 10 ML FLUSH IV FLUSH SCH ×2 (09:00→20:42)
[2016-06-11] MEDS: PANTOPRAZOLE SOD 40 MG DELAYED RELEASE TAB PO SCH ×2 (09:02→20:41)
[2016-06-11] MEDS: CALCIUM/VITAMIN D 250 MG/125 U TAB PO SCH ×2 (09:02→20:41)
[2016-06-11] MEDS: FUROSEMIDE 40 MG TAB PO SCH (09:03)
[2016-06-11] MEDS: AMIODARONE 200 MG TAB PO SCH (09:05)
--- NOTE | 2016-06-11 12:45 | HHI.PR ---
Subjective Remarks Follow up for probable GI bleed. Mr. Mccallum is doing well. No acute concerns. He has not noticed any dark stool or blood in stool. No fever, chills. Objective Vitals Vital Signs Date Time Temp Pulse Resp B/P Pulse Ox O2 Delivery O2 Flow Rate FiO2 06/11/16 12:00 96.6 82 16 118/62 98 06/11/16 08:00 96.8 72 17 102/62 94 06/11/16 00:00 98.3 78 20 98/51 94 06/10/16 20:00 97.7 67 20 96/56 96 06/10/16 16:00 98.3 74 17 103/59 96 I/O 06/10/16 06/10/16 06/10/16 06/11/16 06/11/16 06/11/16 07:00 15:00 23:00 07:00 15:00 23:00 Intake Total 0 ml 0 ml 240 ml 0 ml Output Total 600 ml 700 ml Balance -600 ml -700 ml 240 ml 0 ml Intake Oral 0 ml 0 ml 240 ml 0 ml Output Urine Total 600 ml 700 ml # Voids 1 1 # Bowel Movements 1 Result Diagram: 06/11/16 0353 06/10/16 0718 Imaging Last Impressions Chest X-Ray 06/09/16 1512 Signed Impressions: Service Date/Time: Thursday, June 09, 2016 15:22 - CONCLUSION: 1. No acute cardiopulmonary disease. 2. Degenerative changes and scoliosis of the thoracolumbar spine. Ned Aguilera MD Objective Remarks GENERAL: AOx3, NAD SKIN: Warm and dry. HEAD: Normocephalic. EYES: No scleral icterus. No injection or drainage. NECK: Supple, trachea midline. No JVD or lymphadenopathy. CARDIOVASCULAR: Regular rate and rhythm without murmurs, gallops, or rubs. RESPIRATORY: Breath sounds equal bilaterally. No accessory muscle use. GASTROINTESTINAL: Abdomen soft, non-tender, nondistended. MUSCULOSKELETAL: No cyanosis, or edema. BACK: Nontender without obvious deformity. No CVA tenderness. Procedures Echo 06/11/2015 - Left ventricle: The cavity size was normal. Wall thickness was normal. Systolic function was at the lower limits of normal. The estimated ejection fraction was 50%. Wall motion was normal; there were no regional wall motion abnormalities. - Aortic valve: A bioprosthesis was present. - Mitral valve: MV clip Mild regurgitation. - Right ventricle: The cavity size was moderately dilated. Wall thickness was normal. - Right atrium: The atrium was dilated. - Tricuspid valve: Moderate-severe regurgitation. - Pulmonary arteries: Systolic pressure was moderately to severely increased. PA peak pressure: 68mm Hg (S). A/P Assessment and Plan This is an extremely pleasant 85-year-old male patient with past medical history which includes congestive heart failure, aortic valve regurgitation status post bovine aortic valve replacement 2006, mitral valve clipping, hyperlipidemia atrial fibrillation on Eliquis, hypothyroidism, and chronic kidney disease. Patient since the emergency department for progressive shortness of breath over the past 2 weeks. Found to have a hemoglobin of 5.9. Patient received two units of PRBCs. Severe symptomatic anemia- with shortness of breath Probable Iron deficiency anemia likely due to GI blood loss Hgb dropped to 8.4 --> 7.7. Echocardiogram shows EF 50%. s/p 2 units packed red blood cells Hemoccult stool pending. GI consult --> EGD/Colonoscopy on Sunday06/12/2016. Iron profile, B12, reticulocyte count, haptoglobin, LDH indicate Iron deficiency anemia. No significant hemolysis. Discussed with Dr. Montaño who is now consulted. Further hematology work up if GI work up is negative. Atrial fibrillation Continue amiodarone 100 mg every other day Hold Eliquis Hypothyroidism TSH 5.360 T4 within normal range. Continue home Synthroid Chronic congestive heart failure does not appear to be in acute exacerbation continue with home Lasix 40 mg daily Continue carvedilol 3.125 mg twice a day Full code. SCDs. Continue to hold Apixaban due to probable GI blood loss. Kin Bo DO Jun 11, 2016 12:45 pm
--- NOTE | 2016-06-11 12:46 | HHI.GIFU ---
Subjective Remarks No new complaints. No evidence of GIB, denies any melena, BRBPR, hematemesis, coffee-ground emesis. Denies any abd pain, nausea/vomiting. (Nataly Marquez) Objective Vitals I&O Vital Signs Date Time Temp Pulse Resp B/P Pulse Ox O2 Delivery O2 Flow Rate FiO2 06/11/16 12:00 96.6 82 16 118/62 98 06/11/16 08:00 96.8 72 17 102/62 94 06/11/16 00:00 98.3 78 20 98/51 94 06/10/16 20:00 97.7 67 20 96/56 96 06/10/16 16:00 98.3 74 17 103/59 96 I/O 06/10/16 06/10/16 06/10/16 06/11/16 06/11/16 06/11/16 07:00 15:00 23:00 07:00 15:00 23:00 Intake Total 0 ml 0 ml 240 ml 0 ml Output Total 600 ml 700 ml Balance -600 ml -700 ml 240 ml 0 ml Intake Oral 0 ml 0 ml 240 ml 0 ml Output Urine Total 600 ml 700 ml # Voids 1 1 # Bowel Movements 1 Laboratory Laboratory Tests Test 06/10/16 06/11/16 17:06 03:53 Hemoglobin 8.4 7.7 Hematocrit 24.5 22.4 Imaging Last Impressions Chest X-Ray 06/09/16 1512 Signed Impressions: Service Date/Time: Thursday, June 09, 2016 15:22 - CONCLUSION: 1. No acute cardiopulmonary disease. 2. Degenerative changes and scoliosis of the thoracolumbar spine. Ned Aguilera MD Physical Exam HEENT: Pupils round and reactive to light; normocephalic; atraumatic; no jaundice. Throat is clear. NECK: Neck is supple, no JVD, no lymphadenopathy. CHEST: Chest is clear to auscultation and percussion. CARDIAC: Regular ABDOMEN: +BS, soft, nondistended, nontender EXTREMITIES: No clubbing, cyanosis, or edema. SKIN: Normal; no rash; no jaundice. SAGGER PREPARER: No focal deficits; alert and oriented times three. (Nataly Marquez) Assessment and Plan Plan ASSESSMENT: - Iron deficiency anemia. Hgb at admission of 5.9. No reported active GIB bleeding, Hemoccult negative in the ED. Pt has been transfused with 2 units PRBC, H/H improved to 8.2/23.6. Repeat labs today with Hgb 7.7/ Hct 22.4. Iron studies with serum Fe 22, %sat 5.5, TIBC 403. Pt previously underwent evaluation with EGD (06/01/14) -----> Normal EGD, Colonoscopy (06/02/14)---> diverticulosis in the sigmoid (moderate) and internal mild hemorrhoids. SBFT in 2014 unremarkable. CE on (07/15/14) - --> hyperspastic GE junction, capsule stayed there for few minutes before entering the stomach, mild gastritis, one very small AVM in proximal small bowel. Labs to not reveal evidence of hemolysis. Pt is on Eliquis for a. fib which is currently on hold. - Afib, on chronic anticoagulation- Eliquis on hold. - Dyspnea- most likely secondary to anemia - Chronic kidney disease, CAD per primary. Plan - EGD/colonoscopy tomorrow - Clear liquids - Gol[place]ley - NPO after MN except meds - PPI - Iron supplement can be started after EGD/colonoscopy performed tomorrow. - Monitor H/H closely and transfuse as necessary - Further recommendations as the case develops - Pt seen and examined by Dr. Watkins and myself and this note is written on her behalf (Nataly Marquez) Physician Comments seen, examined agree with above (Echo Watkins MD) Nataly Marquez Jun 11, 2016 12:46 Echo Watkins MD Jun 11, 2016 15:36
[2016-06-11] MEDS ORDERED: PEG (High)/E-LYTE SOLN 4000 ML BTL PO ONE (16:00)
[2016-06-11 17:44] LABS: HEMATOCRIT 25.5 % (39.0-51.0); REVIEW FLAG FINAL
[2016-06-11] MEDS ORDERED: SODIUM CHLOR 0.9% 250 ML INJ 250 ML IV ONE ×2 (17:45→18:00)
--- NOTE | 2016-06-11 17:49 | PD.ONC.PN ---
Subjective Subjective Remarks tired with mild exertional sob Objective Data Date Time Temp Pulse Resp B/P Pulse Ox O2 Delivery O2 Flow Rate FiO2 06/11/16 16:00 96.7 70 16 102/61 94 06/11/16 12:00 96.6 82 16 118/62 98 06/11/16 08:00 96.8 72 17 102/62 94 06/11/16 00:00 98.3 78 20 98/51 94 06/10/16 20:00 97.7 67 20 96/56 96 06/11/16 06/11/16 06/11/16 07:00 15:00 23:00 Intake Total 0 ml 240 ml Balance 0 ml 240 ml Result Diagram: 06/11/16 0353 06/10/16 0718 Laboratory Results Laboratory Tests Test 06/11/16 03:53 Hemoglobin 7.7 GM/DL Hematocrit 22.4 % Administered Medications Medications (Trade) Dose Ordered Sig/Adair Route PRN Reason Start Time Stop Time Status Last Admin Dose Admin Sodium Chloride (NS Flush) 2 ml BID IV FLUSH 06/09/16 21:00 06/11/16 09:00 Atorvastatin Calcium (Lipitor) 20 mg HS PO 06/09/16 21:00 06/10/16 20:22 Furosemide (Lasix) 40 mg DAILY PO 06/10/16 09:00 06/11/16 09:03 Levothyroxine Sodium (Synthroid) 25 mcg DAILY@06 PO 06/10/16 06:00 06/11/16 05:31 Calcium/Vitamin D (Oscal-D 250-125) 500 mg BID PO 06/09/16 21:00 06/11/16 09:02 Pantoprazole Sodium (Protonix) 40 mg Q12HR PO 06/10/16 21:00 06/11/16 09:02 Objective Remarks GENERAL: slender SKIN: Warm and dry. HEAD: Normocephalic. EYES: No scleral icterus. No injection or drainage. NECK: Supple, trachea midline. No JVD or lymphadenopathy. LYMPHATIC: No adenopathy. CARDIOVASCULAR: Regular rate and rhythm RESPIRATORY: Breath sounds equal bilaterally. No accessory muscle use. GASTROINTESTINAL: Abdomen soft, non-tender, nondistended. EXTREMITIES: No cyanosis, or edema. MUSCULOSKELETAL: Adequate muscle tone. NEUROLOGICAL: No obvious focal deficit. Awake, alert, and oriented x3. PSYCHIATRIC: Appropriate mood and affect; insight and judgment normal. Assessment/Plan Assessment 1: still suspect recent bleed and iron deficiency. Given age and comorbidities will transfuse 1 unit. 2: for endoscopy tomorrow 3: if endoscopy negative would be inclined to give him oral iron and observe and if the hemoglobin does not improve I would then do a bone marrow aspirate and bx. Benji Montaño MD Jun 11, 2016 17:49
[2016-06-11] MEDS: ATORVASTATIN 20 MG TAB PO SCH (20:41)
[2016-06-12] VITALS: BP_SYST 130; BP_SYST 134; BP_DIAS 72; BP_DIAS 78; PULSE 80; PULSE 84; RESP 20; TEMP 98; TEMP 98.2; O2SAT 96; O2SAT 97
[2016-06-12 05:25] LABS: HEMATOCRIT 22.9 % (39.0-51.0); REVIEW FLAG FINAL
[2016-06-12] MEDS: LEVOTHYROXINE SODIUM 25 MCG TAB PO SCH (05:28)
[2016-06-12 08:00] VITALS: BP 105/55; PULSE 71; RESP 18; TEMP 97.9; O2SAT 98
[2016-06-12] MEDS: PANTOPRAZOLE SOD 40 MG DELAYED RELEASE TAB PO SCH ×2 (08:32→20:20)
[2016-06-12] MEDS: CALCIUM/VITAMIN D 250 MG/125 U TAB PO SCH ×2 (08:32→20:20)
[2016-06-12] MEDS: FUROSEMIDE 40 MG TAB PO SCH (08:32)
[2016-06-12] MEDS: CARVEDILOL 3.125 MG TAB PO SCH ×2 (08:41→20:21)
--- NOTE | 2016-06-12 08:46 | HHI.PR ---
Subjective Remarks Follow up for probable GI bleed anemia. Mr. Mccallum is doing well. No acute concerns. Denies any fever, chills. Going for EGD/Colonoscopy today. Objective Vitals Vital Signs Date Time Temp Pulse Resp B/P Pulse Ox O2 Delivery O2 Flow Rate FiO2 06/12/16 00:00 98.0 84 20 130/78 97 06/11/16 20:00 98.2 88 20 127/80 95 06/11/16 18:43 97.9 77 16 112/71 99 06/11/16 18:20 97.7 89 17 125/80 94 06/11/16 16:00 96.7 70 16 102/61 94 06/11/16 12:00 96.6 82 16 118/62 98 I/O 06/11/16 06/11/16 06/11/16 06/12/16 06/12/16 06/12/16 07:00 15:00 23:00 07:00 15:00 23:00 Intake Total 0 ml 240 ml 540 ml 0 ml Output Total 500 ml 450 ml Balance 0 ml 240 ml 40 ml -450 ml Intake Oral 0 ml 240 ml 540 ml 0 ml IV Total 0 ml Output Urine Total 500 ml 450 ml # Voids 1 3 # Bowel Movements 0 5 3 Result Diagram: 06/12/16 0500 06/10/16 0718 Imaging Last Impressions Chest X-Ray 06/09/16 1512 Signed Impressions: Service Date/Time: Thursday, June 09, 2016 15:22 - CONCLUSION: 1. No acute cardiopulmonary disease. 2. Degenerative changes and scoliosis of the thoracolumbar spine. Ned Aguilera MD Objective Remarks GENERAL: AOx3, NAD SKIN: Warm and dry. HEAD: Normocephalic. EYES: No scleral icterus. No injection or drainage. NECK: Supple, trachea midline. No JVD or lymphadenopathy. CARDIOVASCULAR: Regular rate and rhythm without murmurs, gallops, or rubs. RESPIRATORY: Breath sounds equal bilaterally. No accessory muscle use. GASTROINTESTINAL: Abdomen soft, non-tender, nondistended. MUSCULOSKELETAL: No cyanosis, or edema. BACK: Nontender without obvious deformity. No CVA tenderness. Procedures Echo 06/11/2015 - Left ventricle: The cavity size was normal. Wall thickness was normal. Systolic function was at the lower limits of normal. The estimated ejection fraction was 50%. Wall motion was normal; there were no regional wall motion abnormalities. - Aortic valve: A bioprosthesis was present. - Mitral valve: MV clip Mild regurgitation. - Right ventricle: The cavity size was moderately dilated. Wall thickness was normal. - Right atrium: The atrium was dilated. - Tricuspid valve: Moderate-severe regurgitation. - Pulmonary arteries: Systolic pressure was moderately to severely increased. PA peak pressure: 68mm Hg (S). A/P Assessment and Plan This is an extremely pleasant 85-year-old male patient with past medical history which includes congestive heart failure, aortic valve regurgitation status post bovine aortic valve replacement 2006, mitral valve clipping, hyperlipidemia atrial fibrillation on Eliquis, hypothyroidism, and chronic kidney disease. Patient since the emergency department for progressive shortness of breath over the past 2 weeks. Found to have a hemoglobin of 5.9. Patient received two units of PRBCs. Severe symptomatic anemia- with shortness of breath Probable Iron deficiency anemia likely due to GI blood loss Hgb dropped to 8.4 --> 7.7. Echocardiogram shows EF 50%. s/p 2 units packed red blood cells Hemoccult stool pending. GI consult --> EGD/Colonoscopy on Sunday06/12/2016. Colonoscopy showed internal hemorrhoids. Blood noted in the sigmoid and rectum. Iron profile, B12, reticulocyte count, haptoglobin, LDH indicate Iron deficiency anemia. No significant hemolysis. Outpatient GI follow up. Repeat H&H in the AM. If stable, we will consider discharging patient home. Atrial fibrillation Continue amiodarone 100 mg every other day Hold Eliquis Hypothyroidism TSH 5.360 T4 within normal range. Continue home Synthroid Chronic congestive heart failure does not appear to be in acute exacerbation continue with home Lasix 40 mg daily Continue carvedilol 3.125 mg twice a day Full code. SCDs. Continue to hold Apixaban due to probable GI blood loss. Kin Bo DO Jun 12, 2016 8:45 am
[2016-06-12] MEDS ORDERED: ePHEDrine/NS 25 MG/5 ML SYR IV ONE (12:00)
[2016-06-12] MEDS ORDERED: PHENYLEPH/NS 1000 MCG/10 ML SYR IV ONE (12:00)
[2016-06-12 12:02] VITALS: BP 105/55; PULSE 71; RESP 18; TEMP 97.9; O2SAT 98
[2016-06-12] MEDS ORDERED: PROPOFOL 200 MG/20 ML AMP IV ONE (12:18)
--- NOTE | 2016-06-12 12:49 | GIPROC ---
[facility] [address] [facility]. [facility], [address] COLONOSCOPY PROCEDURE REPORT EXAM DATE: 06/12/2016 PATIENT NAME: Manuel Mccallum MR #: [id number] BIRTHDATE: 1930 ENDOSCOPIST: Arnoldo Gay MD ORDER #: [id number] PILOT: STATUS: inpatient INDICATIONS: The patient is a 85 yr old male here for a colonoscopy due to rectal bleeding PROCEDURE PERFORMED: Colonoscopy, diagnostic MEDICATIONS: None and Per Anesthesia. PREP QUALITY: fair ESTIMATED BLOOD LOSS: None CONSENT: The patient understands the risks and benefits of the procedure and understands that these risks include, but are not limited to: sedation, allergic reaction, infection, perforation and/or bleeding. Alternative means of evaluation and treatment include, among others: physical exam, x-rays, and/or surgical intervention. The patient elects to proceed with this endoscopic procedure. medical equipment was checked for proper function. Hand hygiene and appropriate measures for infection prevention was taken. After the risks, benefits and alternatives of the procedure were thoroughly explained, Informed consent was verified, confirmed and timeout was successfully executed by the treatment team. A digital exam revealed no abnormalities of the rectum The endoscope was introduced through the anus and advanced to the cecum, which was identified by both the appendix and ileocecal valve. The instrument was then slowly withdrawn as the colon was fully examined. COLON FINDINGS: Mild diverticulosis was noted in the sigmoid colon. Evidence of blood in the sigmoid and rectum only. The colon mucosa was otherwise normal. Retroflexed views revealed small internal hemorrhoids The scope was then completely withdrawn from the patient and the procedure terminated. PROCEDURE WITHDRAWAL TIME:10.4minutes ADVERSE EVENTS: There were no complications. IMPRESSIONS: 1. Mild diverticulosis was noted in the sigmoid colon 2. Evidence of blood in the sigmoid and rectum only 3. The colon mucosa was otherwise normal 4. Retroflexed views revealed small internal hemorrhoids 5. Revealed no abnormalities of the rectum RECOMMENDATIONS: 1. High fiber diet 2. Follow-up: GI Clinic 4 week(s) RECALL: Arnoldo Gay MD eSigned: Arnoldo Gay MD 06/12/2016 12:48 PM cc:
--- NOTE | 2016-06-12 13:16 | GIPROC ---
[facility] [address] [facility]. [facility], [address] EGD PROCEDURE REPORT EXAM DATE: 06/12/2016 PATIENT NAME: Manuel Mccallum MR #: [id number] BIRTHDATE: 1930 ATTENDING: Arnoldo Gay MD ORDER #: [id number] CHEF FRENCH: Arvind Xiong and Chapo Carmichael STATUS: inpatient INDICATIONS: The patient is a 85 yr old male here for an EGD due to hematochezia and anemia PROCEDURE PERFORMED: EGD, diagnostic MEDICATIONS: None and Per Anesthesia. TOPICAL ANESTHETIC: CONSENT: The patient understands the risks and benefits of the procedure and understands that these risks include, but are not limited to: sedation, allergic reaction, infection, perforation and/or bleeding. Alternative means of evaluation and treatment include, among others: physical exam, x-rays, and/or surgical intervention. The patient elects to proceed with this endoscopic procedure. medical equipment was checked for proper function. Hand hygiene and appropriate measures for infection prevention was taken. After the risks, benefits and alternatives of the procedure were thoroughly explained, Informed consent was verified, confirmed and timeout was successfully executed by the treatment team. The patient was anesthetized with topical anesthesia and the [id number] (Pedi C) endoscope was introduced through the mouth and advanced to the second portion of the duodenum. Retroflexed views revealed no abnormalities The gastroscope was then slowly withdrawn and removed. ESOPHAGUS: The mucosa of the esophagus appeared normal. STOMACH: The mucosa of the stomach appeared normal. DUODENUM: The duodenal mucosa appeared normal. ADVERSE EVENTS: There were no complications. IMPRESSIONS: 1. The esophagus appeared normal 2. The mucosa of the stomach appeared normal 3. Normal duodenal mucosa 4. Retroflexed views revealed no abnormalities RECOMMENDATIONS: 1. Out pt capsule endoscopy 2. Follow-up: GI clinic 3 week(s) PATIENT CONDITION: stable DISPOSITION: Inpatient REPEAT EXAM: Arnoldo Gay MD eSigned: Arnoldo Gay MD 06/12/2016 1:15 PM cc:
[2016-06-12 13:48] VITALS: BP 102/58; PULSE 73; RESP 19; TEMP 96.7; O2SAT 97
[2016-06-12 16:00] VITALS: BP_SYST 106; BP_SYST 159; BP_DIAS 55; BP_DIAS 85; PULSE 79; PULSE 89; RESP 18; RESP 19; TEMP 95.6; TEMP 99.8; O2SAT 91; O2SAT 97
[2016-06-12 20:00] VITALS: BP 130/82; PULSE 86; RESP 20; TEMP 97.4; O2SAT 95
[2016-06-12] MEDS: ATORVASTATIN 20 MG TAB PO SCH (20:20)
[2016-06-12] MEDS: SODIUM CHLORIDE 0.9% FLUSH 10 ML FLUSH IV FLUSH SCH (20:23)
[2016-06-13] VITALS: BP 126/88; PULSE 82; RESP 20; TEMP 97.8; O2SAT 97
[2016-06-13] MEDS: LEVOTHYROXINE SODIUM 25 MCG TAB PO SCH (04:53)
[2016-06-13 05:11] LABS: HEMATOCRIT 22.4 % (39.0-51.0); MEAN CORPUSCULAR HEMOGLOBIN 31.2 PG (27.0-34.0); MEAN CORPUSCULAR HGB CONC 34.2 % (32.0-36.0); PLATELET COUNT 104 TH/MM3 (150-450); RED BLOOD COUNT 2.47 MIL/MM3 (4.50-5.90); RED CELL DISTRIBUTION WIDTH 16.2 % (11.6-17.2); REVIEW FLAG FINAL; WHITE BLOOD COUNT 5.8 TH/MM3 (4.0-11.0)
[2016-06-13 08:00] VITALS: BP 97/52; PULSE 82; RESP 17; TEMP 97; O2SAT 94
[2016-06-13] MEDS: CARVEDILOL 3.125 MG TAB PO SCH (09:00)
[2016-06-13] MEDS: FUROSEMIDE 40 MG TAB PO SCH (09:00)
[2016-06-13] MEDS: SODIUM CHLORIDE 0.9% FLUSH 10 ML FLUSH IV FLUSH SCH (09:00)
[2016-06-13] MEDS: AMIODARONE 200 MG TAB PO SCH (09:00)
[2016-06-13] MEDS ORDERED: diphenhydrAMINE HCL 25 MG CAP PO PRN (09:15)
[2016-06-13] MEDS ORDERED: SODIUM CHLOR 0.9% 250 ML INJ 250 ML IV ONE (09:15)
[2016-06-13] MEDS ORDERED: ACETAMINOPHEN 325 MG TAB PO PRN (09:15)
[2016-06-13] MEDS: CALCIUM/VITAMIN D 250 MG/125 U TAB PO SCH (09:27)
[2016-06-13] MEDS: PANTOPRAZOLE SOD 40 MG DELAYED RELEASE TAB PO SCH (09:27)
[2016-06-13 10:15] LABS: HEMATOCRIT 24.1 % (39.0-51.0); REVIEW FLAG FINAL
--- NOTE | 2016-06-13 10:28 | PD.ONC.PN ---
Subjective Subjective Remarks Afebrile overnight. Patient resting comfortably without complaint. Denies pain. Objective Data Date Time Temp Pulse Resp B/P Pulse Ox O2 Delivery O2 Flow Rate FiO2 06/13/16 08:00 97.0 82 17 97/52 94 06/13/16 00:00 97.8 82 20 126/88 97 06/13/16 00:00 97.8 82 20 126/88 97 06/12/16 20:00 97.4 86 20 130/82 95 06/12/16 16:00 95.6 79 19 106/55 97 06/12/16 13:48 96.7 73 19 102/58 97 06/12/16 13:08 72 18 96/56 98 06/12/16 12:52 76 20 92/56 99 06/12/16 12:48 97.9 69 20 84/52 100 06/12/16 12:02 97.9 71 18 105/55 98 06/13/16 06/13/16 06/13/16 07:00 15:00 23:00 Intake Total 240 ml Output Total 600 ml Balance -360 ml Result Diagram: 06/13/16 0950 06/10/16 0718 Laboratory Results Laboratory Tests Test 06/13/16 06/13/16 04:24 09:50 White Blood Count 5.8 TH/MM3 Red Blood Count 2.47 MIL/MM3 Hemoglobin 7.7 GM/DL 7.9 GM/DL Hematocrit 22.4 % 24.1 % Mean Corpuscular Volume 91.0 FL Mean Corpuscular Hemoglobin 31.2 PG Mean Corpuscular Hemoglobin 34.2 % Concent Red Cell Distribution Width 16.2 % Platelet Count 104 TH/MM3 Mean Platelet Volume 9.7 FL Culture Results Microbiology Date/Time Procedure Status Source Growth 06/11/16 18:42 Stool Occult Blood ([facility]) - Final Complete Stool Stool Administered Medications Medications (Trade) Dose Ordered Sig/[place] Route PRN Reason Start Time Stop Time Status Last Admin Dose Admin Sodium Chloride (NS Flush) 2 ml BID IV FLUSH 06/09/16 21:00 06/13/16 09:00 Atorvastatin Calcium (Lipitor) 20 mg HS PO 06/09/16 21:00 06/12/16 20:20 Furosemide (Lasix) 40 mg DAILY PO 06/10/16 09:00 06/12/16 08:32 Levothyroxine Sodium (Synthroid) 25 mcg DAILY@06 PO 06/10/16 06:00 06/13/16 04:53 Calcium/Vitamin D (Oscal-D 250-125) 500 mg BID PO 06/09/16 21:00 06/13/16 09:27 Pantoprazole Sodium (Protonix) 40 mg Q12HR PO 06/10/16 21:00 06/13/16 09:27 Objective Remarks GENERAL: Elderly male, sitting up in bed in nad. SKIN: Warm and dry. HEAD: Normocephalic. EYES: No injection or drainage. NECK: Supple, trachea midline. CARDIOVASCULAR: +S1/S2 RESPIRATORY: Breath sounds equal bilaterally. No accessory muscle use. GASTROINTESTINAL: Abdomen soft, non-tender, nondistended. EXTREMITIES: No cyanosis MUSCULOSKELETAL: Adequate muscle tone. NEUROLOGICAL: No obvious focal deficit. Awake, alert, and oriented x3. Assessment/Plan Assessment 85y/o with anemia, GIB Plan 1. would give 1 unit pRBC prior to discharge. I would want to keep his hemoglobin greater than 9 with his heart condition. 2. patient advised to follow up with his primary physician upon discharge and to obtain a weekly CBC. 3. Dr. Montaño spoke with Dr. Valerio, patient's personal assistant while in room and it was agreed patient should hold his Eliquis d/t GIB until follow up with Dr. Valerio in a few weeks time. Patient expressed understanding of the plan 4. If anemia persists, Dr. Montaño will obtain bone marrow biopsy outpatient, but anemia is most likely entirely due to his bleeding, not a hematologic issue. 5. continue oral iron outpatient Attending Statement The exam, history, and the medical decision-making described in the above note were completed with the assistance of the mid-level provider. I reviewed and agree with the findings presented. I attest that I had a [id number] encounter with the patient on the same day, and personally performed and documented my assessment and findings in the medical record. patient comfortable but tired. no change in exam. discussed with his personal assistant and it is felt prudent to hold eliquis for the present. Keiko hernandez Hilary Elizabeth PA Jun 13, 2016 10:28 Benji Montaño MD Jun 16, 2016 20:57
[2016-06-13 12:00] VITALS: BP 103/56; PULSE 78; RESP 17; TEMP 97.6; O2SAT 94
[2016-06-13 12:03] VITALS: BP 103/56; PULSE 78; RESP 17; TEMP 97.6; O2SAT 94
[2016-06-13 12:54] VITALS: BP 100/58; PULSE 69; RESP 19; TEMP 97; O2SAT 99
[2016-06-13] MEDS ORDERED: FERR325T PO ×2 (14:06→14:07)
--- NOTE | 2016-06-13 14:09 | HHI.DS ---
Discharge Summary Admission Date Jun 09, 2016 at 5:49 pm Discharge Date: Jun 13, 2016 Admitting Diagnosis Anemia/Hx. CHF/Afib (1) Iron deficiency anemia due to chronic blood loss ICD Code: D50.0 Diagnosis: Principal (2) Atrial fibrillation ICD Code: I48.91 Procedures Echo 06/11/2015 - Left ventricle: The cavity size was normal. Wall thickness was normal. Systolic function was at the lower limits of normal. The estimated ejection fraction was 50%. Wall motion was normal; there were no regional wall motion abnormalities. - Aortic valve: A bioprosthesis was present. - Mitral valve: MV clip Mild regurgitation. - Right ventricle: The cavity size was moderately dilated. Wall thickness was normal. - Right atrium: The atrium was dilated. - Tricuspid valve: Moderate-severe regurgitation. - Pulmonary arteries: Systolic pressure was moderately to severely increased. PA peak pressure: 68mm Hg (S). Brief History - From Admission This is an extremely pleasant 85-year-old male patient with past medical history which includes congestive heart failure, aortic valve regurgitation status post bovine aortic valve replacement 2006, mitral valve clipping, hyperlipidemia atrial fibrillation on Eliquis, hypothyroidism, and chronic kidney disease. Patient presents to the emergency department with complained of shortness of breath. Patient reports that 1 to 2 months ago he was able to walk his normal 25-30 minutes per day without any difficulties. Patient reports over the past approximally 2 weeks it has been getting progressively harder to do his walks due to shortness of breath. Patient reports at this point he has difficulty walking to the mailbox and back because of shortness of breath. Patient reports as long as he is sitting still at rest he has no shortness of breath and feels well only gets short of breath with activity. Patient denies any bright red blood per rectum or black tarry stools. Patient believes he had a colonoscopy one to 2 years ago reports the results were normal. Patient proceeded to the emergency department for further evaluation and treatment. He denies associated fevers chills cough congestion. Patient also denies bilateral lower extremity edema, pillow orthopnea, weight gain or chest pain. Patient found to have a hemoglobin of 5.9 with hematocrit of 18.0 rectal exam done by emergency room provider guaiac negative there is no stool present in the vault. CBC/BMP: 06/13/16 0950 06/10/16 0718 Significant Findings Laboratory Tests Test 06/10/16 06/11/16 06/11/16 06/12/16 17:06 03:53 17:34 05:00 Hemoglobin 8.4 GM/DL 7.7 GM/DL 8.6 GM/DL 8.0 GM/DL (13.0-17.0) (13.0-17.0) (13.0-17.0) (13.0-17.0) Hematocrit 24.5 % 22.4 % 25.5 % 22.9 % (39.0-51.0) (39.0-51.0) (39.0-51.0) (39.0-51.0) Test 06/13/16 06/13/16 04:24 09:50 Red Blood Count 2.47 MIL/MM3 (4.50-5.90) Hemoglobin 7.7 GM/DL 7.9 GM/DL (13.0-17.0) (13.0-17.0) Hematocrit 22.4 % 24.1 % (39.0-51.0) (39.0-51.0) Platelet Count 104 TH/MM3 (150-450) Imaging Last Impressions Chest X-Ray 06/09/16 1512 Signed Impressions: Service Date/Time: Thursday, June 09, 2016 15:22 - CONCLUSION: 1. No acute cardiopulmonary disease. 2. Degenerative changes and scoliosis of the thoracolumbar spine. Ned Aguilera MD PE at Discharge GENERAL: AOx3, NAD SKIN: Warm and dry. HEAD: Normocephalic. EYES: No scleral icterus. No injection or drainage. NECK: Supple, trachea midline. No JVD or lymphadenopathy. CARDIOVASCULAR: Regular rate and rhythm without murmurs, gallops, or rubs. RESPIRATORY: Breath sounds equal bilaterally. No accessory muscle use. GASTROINTESTINAL: Abdomen soft, non-tender, nondistended. MUSCULOSKELETAL: No cyanosis, or edema. BACK: Nontender without obvious deformity. No CVA tenderness. Pt update on day of discharge Patient is doing well. Receiving one unit of blood per hematology recommendations. Per heme recommendations, we will discharge patient home today. He is advised to consult with his test worker prior to starting Apixaban. Hospital Course This is an extremely pleasant 85-year-old male patient with past medical history which includes congestive heart failure, aortic valve regurgitation status post bovine aortic valve replacement 2006, mitral valve clipping, hyperlipidemia atrial fibrillation on Eliquis, hypothyroidism, and chronic kidney disease. Patient since the emergency department for progressive shortness of breath over the past 2 weeks. Found to have a hemoglobin of 5.9. Patient received two units of PRBCs. Severe symptomatic anemia- with shortness of breath Probable Iron deficiency anemia likely due to GI blood loss Hgb dropped to 8.4 --> 7.7. Echocardiogram shows EF 50%. s/p packed red blood cells Hemoccult stool pending. GI consult --> EGD/Colonoscopy on Sunday06/12/2016. Colonoscopy showed internal hemorrhoids. Blood noted in the sigmoid and rectum. Iron profile, B12, reticulocyte count, haptoglobin, LDH indicate Iron deficiency anemia. No significant hemolysis. Outpatient GI follow up. Start Iron supplements. Patient is advised to follow up with GI as well as hematology. Atrial fibrillation Continue amiodarone 100 mg every other day Hold Eliquis Hypothyroidism TSH 5.360 T4 within normal range. Continue home Synthroid Chronic congestive heart failure does not appear to be in acute exacerbation continue with home Lasix 40 mg daily Continue carvedilol 3.125 mg twice a day Full code. SCDs. Continue to hold Apixaban due to probable GI blood loss. Pt Condition on Discharge: Good Discharge Disposition: Discharge Home Discharge Time: > 30 minutes Discharge Instructions DIET: Follow Instructions for: Heart Healthy Diet Activities you can perform: Regular-No Restrictions Follow up Referrals: Cardiology - 2 Weeks with Keron Valerio MD Oncology - 4 Weeks with Benji Montaño MD PCP Follow-up - 1 Week New Medications: Ferrous Sulfate (Ferrous Sulfate) 325 Mg Tab 325 MG PO TID If possible, take it with [place] juice or Vitamin C tablets. Nutritional Supplement #90 Ref 0 TAB Continued Medications: Amiodarone (Amiodarone) 200 Mg Tab 100 MG PO EVERY OTHER DAY Regulate Heart Beat #30 Ref 0 TAB Atorvastatin (Atorvastatin) 20 Mg Tab 20 MG PO HS Cholesterol Management #30 Ref 0 TAB Calcium Carbonate (Caltrate 600) 1,500 Mg Tab 1 TAB PO BID Calcium Supplement Ref 0 TAB Carvedilol (Carvedilol) 3.125 Mg Tab 3.125 MG PO BID #60 Ref 0 TAB Furosemide (Lasix) 40 Mg Tab 40 MG PO DAILY #30 Ref 0 TAB Levothyroxine (Levothyroxine) 25 Mcg Tab 25 MCG PO DAILY Thyroid #30 Ref 0 TAB Multiple Vitamin (Multiple Vitamin) 1 Tab 1 TAB PO DAILY Nutritional Supplement Ref 0 TAB Discontinued Medications: Apixaban (Eliquis) 2.5 Mg Tab 2.5 MG PO BID Blood Clot Prevention Ref 0 TAB Kin Bo DO Jun 13, 2016 14:09
[2016-06-13 16:00] VITALS: BP 105/76; PULSE 83; RESP 17; TEMP 96.9; O2SAT 95
== END 2016-06-13 16:58 | disposition home or self-care (01) | DRG 812 ==
LOC: NEDAMB 13:45 → NEDA 17:49 → N07B 21:37
PROVIDERS: ADMIT Hospitalist; ATTEND Hospitalist
PROC: 30233N1 Transfusion of Nonautologous Red Blood Cells into Peripheral Vein, Percutaneous Approach (ICD-10-PCS; principal; 2016-06-09)
PROC: 0DJD8ZZ Inspection of Lower Intestinal Tract, Via Natural or Artificial Opening Endoscopic (ICD-10-PCS; 2016-06-12)
PROC: 0DJ08ZZ Inspection of Upper Intestinal Tract, Via Natural or Artificial Opening Endoscopic (ICD-10-PCS; 2016-06-12 12:06)
DX: D50.0 Iron deficiency anemia secondary to blood loss (chronic) (principal); I13.0 Hypertensive heart and chronic kidney disease with heart failure and stage 1 through stage 4 chronic kidney disease, or unspecified chronic kidney disease; I50.9 Heart failure, unspecified; K92.2 Gastrointestinal hemorrhage, unspecified; I48.91 Unspecified atrial fibrillation; E03.9 Hypothyroidism, unspecified; I25.10 Atherosclerotic heart disease of native coronary artery without angina pectoris; E78.5 Hyperlipidemia, unspecified; N18.2 Chronic kidney disease, stage 2 (mild); K57.30 Diverticulosis of large intestine without perforation or abscess without bleeding; K64.8 Other hemorrhoids; I08.1 Rheumatic disorders of both mitral and tricuspid valves; Z79.01 Long term (current) use of anticoagulants; Z95.0 Presence of cardiac pacemaker; Z95.1 Presence of aortocoronary bypass graft; Z95.3 Presence of xenogenic heart valve
CPT/HCPCS: 36430; 71010; 80048; 80076; 82272; 82550; 82552; 82607; 82668; 82728; 83010; 83540; 83550; 83615; 83721; 83735; 83880; 84439; 84443; 84484; 85014; 85018; 85025; 85027; 85044; 85610; 85730; 86850; 86900; 86901; 86920; 93005; 93306; J1940; J2370; J7050; P9016

== ENCOUNTER 2017-04-24 10:33 | Inpatient (IN) | payer OTHER, MEDICARE ==
[~2017-04-24] VITALS: Ht 182.9 cm; Wt 61.2 kg
[~2017-04-24 10:33] MED LIST changes: +AMIO200T PO; -APIX2.5T PO; -ATOR10TA PO; +ATOR20TA15 PO; -ECOT81TA2 PO; +FERR325T PO; -FERR65TA PO; +FURO1TAB60 PO; -FURO1TAB93 PO; -LEVO.025 PO; +LEVO25TA4 PO; -LISI-357 PO; +MULTTAB67 PO; -PACE200T4 PO; -TAB-TAB PO
[2017-04-24 10:40] VITALS: BP 125/60; PULSE 85; RESP 16; TEMP 98.5; O2SAT 98
[2017-04-24 10:53] VITALS: BP 124/63; PULSE 78; RESP 16; O2SAT 98
[2017-04-24] MEDS ORDERED: TETANUS/DIPHTHERIA TOXOID ADULT 0.5 ML VIAL IM ONE (11:30)
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
[2017-04-24 11:49] LABS: AUTOMATED NEUTROPHIL # 14.4 TH/MM3 (1.8-7.7); HEMATOCRIT 28.9 % (39.0-51.0); LYMPH % 3.6 % (9.0-44.0); LYMPHOCYTE # 0.6 TH/MM3 (1.0-4.8); MEAN CELL VOLUME 96.2 FL (80.0-100.0); MEAN CORPUSCULAR HEMOGLOBIN 33.2 PG (27.0-34.0); MEAN CORPUSCULAR HGB CONC 34.5 % (32.0-36.0); MEAN PLATELET VOLUME 10.8 FL (7.0-11.0); MONOCYTE # 1.1 TH/MM3 (0-0.9); NEUT % 89.4 % (16.0-70.0); PLATELET COUNT 122 TH/MM3 (150-450); WHITE BLOOD COUNT 16.1 TH/MM3 (4.0-11.0)
--- NOTE | 2017-04-24 11:59 | RADRPT ---
EXAM DATE/TIME: 04/24/2017 11:38 [facility] COMPARISON: No previous studies available for comparison. INDICATIONS : Right forearm pain, no known injury. MEDICAL HISTORY : None. SURGICAL HISTORY : None. ENCOUNTER: Initial ACUITY: 1 day PAIN SCORE: 4/10 LOCATION: Right forearm FINDINGS: Two view examination of the right forearm demonstrates no evidence of fracture or dislocation. There is a focal probable old ununited avulsion fracture of the ulnar styloid process. Diffuse osteopenia i s noted. The soft tissue structures are intact. CONCLUSION: 1. Probable old ununited avulsion fracture of the ulnar styloid process. 2. No acute fracture or dislocation. 3. Diffuse osteopenia. Ned Aguilera MD on April 24, 2017 at 11:55 Board Certified Radiologist. This report was verified electronically.
--- NOTE | 2017-04-24 11:59 | RADRPT ---
EXAM DATE/TIME: 04/24/2017 11:37 [facility] COMPARISON: CHEST SINGLE AP, June 09, 2016, 15:22. INDICATIONS : Chest pain. MEDICAL HISTORY : Hypertension. Congestive heart failure. Cardiovascular disease. SURGICAL HISTORY : Pacemaker. Heart valve replacement. ENCOUNTER: Initial ACUITY: 1 day PAIN SCORE: 5/10 LOCATION: Right chest FINDINGS: Pacemaker device is noted with control pack over the left chest. There is irregular opacity overlying the right lung apex which was not noted previously. This may reflect artifact as there also appears to be some similar density overlying the supraclavicular region. The left apex is not fully seen. Goo d quality PA and lateral views of the chest would be suggested when clinically feasible. Previous valve replacement. Cardiac contour is grossly unchanged. No evidence of effusion. CONCLUSION: Abnormal chest appearance however technically suboptimal. Recommend good quality PA and lateral views of the chest. Nando Sewell MD on April 24, 2017 at 11:53 Board Certified Radiologist. This report was verified electronically.
[2017-04-24 12:02] LABS: INTERNATIONAL NORMALIZED RATIO 1.1 RATIO; PROTHROMBIN TIME - PATIENT 11.4 SEC (9.8-11.6)
[2017-04-24 12:06] LABS: BICARBONATE 29.5 MEQ/L (21.0-32.0); CALCIUM 8.6 MG/DL (8.5-10.1); CREATININE 2.5 MG/DL (0.60-1.30)
[2017-04-24 12:21] LABS: TROPONIN I 0.13 NG/ML (0.02-0.05)
[2017-04-24] MEDS ORDERED: SODIUM CHLOR 0.9% 1000 ML INJ 1,000 ML IV SCH ×3 (12:49→14:33)
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
[2017-04-24] MEDS ORDERED: SENNOSIDES 8.6 MG TAB PO PRN (14:45)
[2017-04-24] MEDS ORDERED: ACETAMINOPHEN 325 MG TAB PO PRN (14:45)
[2017-04-24] MEDS ORDERED: MAGNESIUM HYDROXIDE SUSP 30 ML CUP PO PRN (14:45)
[2017-04-24] MEDS ORDERED: BISACODYL 10 MG SUPP RECTAL PRN (14:45)
[2017-04-24] MEDS ORDERED: LACTULOSE SYRUP 20 GM/30 ML CUP PO PRN (14:45)
[2017-04-24] MEDS ORDERED: ONDANSETRON HCL 4 MG/2 ML VIAL IVP PRN (14:45)
[2017-04-24] MEDS ORDERED: NALOXONE HCL 0.4 MG/ML AMP IV PUSH PRN (14:45)
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
--- NOTE | 2017-04-24 15:51 | EKG ---
Date Performed: 04/24/2017 Time Performed: 10:44:02 PTAGE: 86 years EKG: ELECTRONIC ATRIAL PACEMAKER ELECTRONIC VENTRICULAR PACEMAKER ABNORMAL RHYTHM ECG INTERPRETA TION BASED ON A DEFAULT AGE OF 40 YEARS Since the prior tracing, there has been no significant change PREVIOUS TRACING : 06/09/2016 15.49 DOCTOR: Donavon Ayoub Interpretating Date/Time 04/24/2017 15:50:14
[2017-04-24 16:10] VITALS: BP 110/58; PULSE 71; RESP 14; O2SAT 98
[2017-04-24 17:05] LABS: HEMATOCRIT 26.5 % (39.0-51.0); HEMOGLOBIN 9.1 GM/DL (13.0-17.0)
[2017-04-24 17:39] LABS: TROPONIN I 0.16 NG/ML (0.02-0.05)
[2017-04-24 18:05] VITALS: BP 111/58; PULSE 69; RESP 18; TEMP 97.2; O2SAT 94
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
[2017-04-24 20:00] VITALS: PULSE 66; RESP 16; TEMP 95.6; O2SAT 93
[2017-04-24] MEDS: ATORVASTATIN 20 MG TAB PO SCH (21:37)
[2017-04-24] MEDS: DOCUSATE SODIUM 50 MG/SENNA 8.6 MG TAB PO SCH (21:37)
[2017-04-25] VITALS (10 sets, daily range): BP systolic 103–140; BP diastolic 55–67; PULSE 69–82; RESP 16–20; TEMP 97.8–98.5; O2SAT 94–98
[2017-04-25] MEDS: LEVOTHYROXINE SODIUM 25 MCG TAB PO SCH (05:52)
[2017-04-25 06:54] LABS: AUTOMATED NEUTROPHIL # 8.8 TH/MM3 (1.8-7.7); BASOPHIL % 0.2 % (0.0-2.0); HEMATOCRIT 25.7 % (39.0-51.0); HEMOGLOBIN 9.1 GM/DL (13.0-17.0); LYMPH % 5.4 % (9.0-44.0); LYMPHOCYTE # 0.5 TH/MM3 (1.0-4.8); MEAN CELL VOLUME 96.5 FL (80.0-100.0); MEAN CORPUSCULAR HEMOGLOBIN 34.3 PG (27.0-34.0); MEAN CORPUSCULAR HGB CONC 35.5 % (32.0-36.0); MEAN PLATELET VOLUME 10.2 FL (7.0-11.0); MONO % 6.2 % (0.0-8.0); MONOCYTE # 0.6 TH/MM3 (0-0.9); NEUT % 88.2 % (16.0-70.0); PLATELET COUNT 93 TH/MM3 (150-450); RED BLOOD COUNT 2.66 MIL/MM3 (4.50-5.90); RED CELL DISTRIBUTION WIDTH 13.2 % (11.6-17.2)
[2017-04-25 07:28] LABS: ALBUMIN 3.2 GM/DL (3.4-5.0); ALT (GPT) 97 U/L (12-78); AST (GOT) 158 U/L (15-37); BICARBONATE 24.9 MEQ/L (21.0-32.0); BLOOD UREA NITROGEN 55 MG/DL (7-18); CALCIUM 8.2 MG/DL (8.5-10.1); CHLORIDE 112 MEQ/L (98-107); CREATININE 1.74 MG/DL (0.60-1.30); GLOMERULAR FILTRATION RATE 37 ML/MIN (>89); GLUCOSE,RANDOM 69 MG/DL (74-106); SODIUM (NA) 146 MEQ/L (136-145)
[2017-04-25 07:37] LABS: ALKALINE PHOSPHATASE 68 U/L (45-117); TOTAL BILIRUBIN ADULT 1.2 MG/DL (0.2-1.0); TOTAL PROTEIN 5.7 GM/DL (6.4-8.2)
--- NOTE | 2017-04-25 08:01 | PD.CARD.PN ---
Subjective Subjective Remarks Slept well. No further loss of consciousness. No CP, dyspnea, palpitations, dizziness. Objective Medications Item Value Date Time Amiodarone HCl 100 mg 04/26/17 0900 (Cordarone) EVERY OTHER DAY/PO Aspirin 81 mg 04/25/17 0900 (Ecotrin Ec) DAILY/PO Atorvastatin 20 mg 04/24/172099 Calcium HS/PO 04/24/172136 (Lipitor) Current Medications Medications (Trade) Dose Ordered Sig/[place] Route Start Time Stop Time Status Last Admin (Tylenol) 650 mg Q4H PRN PO 04/24/17 14:45 (Zofran Inj) 4 mg Q6H PRN IVP 04/24/17 14:45 (Narcan Inj) 0.4 mg UNSCH PRN IV PUSH 04/24/17 14:45 (Marie-Colace) 1 tab BID PO 04/24/17 21:00 04/24/17 21:37 (Milk Of Magnesia Liq) 30 ml Q12H PRN PO 04/24/17 14:45 (Senokot) 17.2 mg Q12H PRN PO 04/24/17 14:45 (Dulcolax Supp) 10 mg DAILY PRN RECTAL 04/24/17 14:45 (Lactulose Liq) 30 ml DAILY PRN PO 04/24/17 14:45 (Cordarone) 100 mg EVERY OTHER DAY PO 04/26/17 09:00 (Lipitor) 20 mg HS PO 04/24/17 21:00 04/24/17 21:37 (Synthroid) 25 mcg DAILY@0600 PO 04/25/17 06:00 04/25/17 05:52 (Theragran) 1 tab DAILY PO 04/25/17 09:00 (Ecotrin Ec) 81 mg DAILY PO 04/25/17 09:00 Vital Signs / I&O Vital Signs Date Time Temp Pulse Resp B/P (MAP) Pulse Ox O2 Delivery O2 Flow Rate FiO2 04/25/17 04:00 98.3 75 18 137/65 (89) 98 04/25/17 00:00 97.8 71 16 112/58 (76) 97 04/24/17 20:00 95.6 66 16 93 04/24/17 18:05 97.2 69 18 111/58 (75) 94 04/24/17 17:43 04/24/17 16:10 71 14 110/58 (75) 98 Room Air 04/24/17 10:53 78 16 124/63 (83) 98 Room Air 04/24/17 10:40 98.5 85 16 125/60 (81) 98 I/O 04/24/17 04/24/17 04/24/17 04/25/17 04/25/17 04/25/17 07:00 15:00 23:00 07:00 15:00 23:00 Intake Total 2000 ml 480 ml Balance 2000 ml 480 ml Intake Oral 480 ml IV Total 2000 ml # Voids 4 # Bowel Movements 0 Physical Exam GENERAL: Well developed, thin. No acute distress. HEENT: Jugular venous pressure is normal. CHEST: Lungs clear to auscultation bilaterally. Unlabored respiratory effort. CARDIAC: Regular rate and rhythm without S3, S4. II/ blowing holosystolic murmur apex. ABDOMEN: Soft, nontender, no hepatosplenomegaly. Bowel sounds present. EXTREMITIES: No clubbing, cyanosis, or edema. Laboratory Laboratory Tests Test 04/24/17 10:45 04/24/17 16:30 04/24/17 16:50 04/25/17 05:33 White Blood Count 16.1 TH/MM3 10.0 TH/MM3 Red Blood Count 3.00 MIL/MM3 2.66 MIL/MM3 Hemoglobin 10.0 GM/DL 9.1 GM/DL 9.1 GM/DL Hematocrit 28.9 % 26.5 % 25.7 % Mean Corpuscular Volume 96.2 FL 96.5 FL Mean Corpuscular Hemoglobin 33.2 PG 34.3 PG Mean Corpuscular Hemoglobin Concent 34.5 % 35.5 % Red Cell Distribution Width 13.0 % 13.2 % Platelet Count 122 TH/MM3 93 TH/MM3 Mean Platelet Volume 10.8 FL 10.2 FL Neutrophils (%) (Auto) 89.4 % 88.2 % Lymphocytes (%) (Auto) 3.6 % 5.4 % Monocytes (%) (Auto) 7.0 % 6.2 % Eosinophils (%) (Auto) 0.0 % 0.0 % Basophils (%) (Auto) 0.0 % 0.2 % Neutrophils # (Auto) 14.4 TH/MM3 8.8 TH/MM3 Lymphocytes # (Auto) 0.6 TH/MM3 0.5 TH/MM3 Monocytes # (Auto) 1.1 TH/MM3 0.6 TH/MM3 Eosinophils # (Auto) 0.0 TH/MM3 0.0 TH/MM3 Basophils # (Auto) 0.0 TH/MM3 0.0 TH/MM3 CBC Comment DIFF FINAL AUTO DIFF Differential Comment Prothrombin Time 11.4 SEC Prothromb Time International Ratio 1.1 RATIO Activated Partial Thromboplast Time 24.5 SEC Blood Urea Nitrogen 77 MG/DL 55 MG/DL Creatinine 2.50 MG/DL 1.74 MG/DL Random Glucose 116 MG/DL 69 MG/DL Calcium Level 8.6 MG/DL 8.2 MG/DL Sodium Level 143 MEQ/L 146 MEQ/L Potassium Level 4.8 MEQ/L 4.0 MEQ/L Chloride Level 107 MEQ/L 112 MEQ/L Carbon Dioxide Level 29.5 MEQ/L 24.9 MEQ/L Anion Gap 7 MEQ/L 9 MEQ/L Estimat Glomerular Filtration Rate 25 ML/MIN 37 ML/MIN Total Creatine Kinase 4538 U/L 3195 U/L 2356 U/L Creatine Kinase MB 14.3 NG/ML 10.1 NG/ML Creatine Kinase MB % 0.3 % 0.3 % Troponin I 0.13 NG/ML 0.16 NG/ML Total Protein 5.7 GM/DL Albumin 3.2 GM/DL Alkaline Phosphatase 68 U/L Aspartate Amino Transf (AST/SGOT) 158 U/L Alanine Aminotransferase (ALT/SGPT) 97 U/L Total Bilirubin 1.2 MG/DL Test 04/25/17 06:33 Troponin I 0.19 NG/ML Imaging Last [address] 04/24/171121 Signed Impressions: Service Date/Time: Monday, April 24, 2017 13:04 - CONCLUSION: 1. 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 2. Moderate periventricular white matter small vessel ischemic changes bilaterally. 3. Diffuse central cerebral atrophy. 4. No acute infarct, acute hemorrhage, mass effect or extra-axial fluid collections. Ned Aguilera MD Chest X-Ray 04/24/171121 Signed Impressions: Service Date/Time: Monday, April 24, 2017 11:37 - CONCLUSION: Abnormal chest appearance however technically suboptimal. Recommend good quality PA and lateral views of the chest. Nando Sewell MD Chest CT 04/24/172 Signed Impressions: Service Date/Time: Monday, April 24, 2017 13:13 - CONCLUSION: 1. No acute intrathoracic trauma. 2. 8mm noncalcified nodular density within the right lower lobe which is indeterminate. This either represents a true pulmonary nodule or nodular infiltrate. Followup CT chest in 3 months may be helpful for further evaluation. 3. Minimal focal infiltrate within the right upper lobe. 4. Cardiomegaly and coronary artery calcifications. 5. 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 6. Degenerative changes and scoliosis of the thoracic spine. Ned Aguilera MD Cervical Spine CT 04/24/171121 Signed Impressions: Service Date/Time: Monday, April 24, 2017 13:06 - CONCLUSION: 1. No acute fracture or subluxation. 2. Moderately advanced degenerative spondylosis of the cervical spine. Barry Francois MD Abdomen/Pelvis CT 04/24/171121 Signed Impressions: Service Date/Time: Monday, April 24, 2017 13:12 - CONCLUSION: 1. No acute intra-abdominal trauma. 2. Enlarged prostate. 3. Distended urinary bladder. 4. Uncomplicated colonic diverticulosis. 5. Scattered subcentimeter intermediate density nodules arising from the lower pole the left kidney consistent with complex cysts or small solid lesions. Outpatient contrast enhanced CT may be helpful for further characterization if clinically indicated Ned Aguilera MD Assessment and Plan Problem List: (1) Syncope ICD Codes: R55 - Syncope and collapse Status: Acute Plan: Stable overnight. No further loss of consciousness. Overall doubt cardiac etiology. Pacemaker interrogation pending. Will f/u as needed. (2) CAD (coronary artery disease) ICD Codes: I25.9 - CAD (coronary artery disease) Status: Chronic Plan: Stable. No recent angina. Doubt slightly elevated troponin levels of any clinical significance especially with renal insufficiency. Continue daily aspirin. Review of patient's previous records show BP's in past too low for beta emely, JOY-I therapy. (3) Paroxysmal atrial fibrillation ICD Codes: I48.0 - Paroxysmal atrial fibrillation Status: Chronic Plan: Remains in NSR on low dose Amiodarone. Patient states he has been taking Eliquis recently. Patient not good candidate to continue Eliquis with recurrent GI bleeds, recent falls, renal insufficiency. Recommend continue Amiodarone and daily aspirin. (4) History of cardiac pacemaker ICD Codes: Z95.0 - Presence of cardiac pacemaker Status: Chronic Plan: Pacemaker interrogation to be done this morning. (5) History of aortic valve replacement ICD Codes: Z95.2 - Presence of prosthetic heart valve Status: Chronic Plan: Echo pending. AVR function by exam normal. (6) Valvular heart disease ICD Codes: I38 - Endocarditis, valve unspecified Status: Chronic Plan: History of MitraClip for severe mitral regurgitation. History of moderate to severe tricuspid regurgitation on echo 2017. Echo pending. Patient clinically stable. He does have MR murmur on exam. Code Status full code Discussed Condition With patient Problem Qualifiers (1) Syncope: Qualified Codes: R55 - Syncope and collapse (2) CAD (coronary artery disease): Qualified Codes: I25.10 - Atherosclerotic heart disease of [place] coronary artery without angina pectoris Sumeet Freitas MD Apr 25, 2017 08:01
[2017-04-25] MEDS: DOCUSATE SODIUM 50 MG/SENNA 8.6 MG TAB PO SCH ×2 (08:13→21:40)
[2017-04-25] MEDS: MULTIVITAMIN TAB PO SCH (08:14)
[2017-04-25] MEDS: ASPIRIN EC 81 MG TABEC PO SCH (08:14)
[2017-04-25] MEDS: TAMSULOSIN HCL 0.4 MG CAP PO SCH (11:02)
[2017-04-25] MEDS: SODIUM CHLOR 0.45% 1000 ML INJ 1,000 ML IV SCH ×2 (11:18→23:25)
--- NOTE | 2017-04-25 11:26 | EKG ---
Date Performed: 04/24/2017 Time Performed: 21:38:57 PTAGE: 86 years EKG: ELECTRONIC ATRIAL PACEMAKER ELECTRONIC VENTRICULAR PACEMAKER PREVIOUS TRACING : 04/24/2017 16.27 DOCTOR: Shola Isabel Interpretating Date/Time 04/25/2017 11:25:41
--- NOTE | 2017-04-25 12:57 | EKG ---
Date Performed: 04/24/2017 Time Performed: 16:27:53 PTAGE: 86 years EKG: ELECTRONIC ATRIAL PACEMAKER ELECTRONIC VENTRICULAR PACEMAKER ABNORMAL RHYTHM ECG PREVIOUS TRACING : 04/24/2017 10.44 DOCTOR: Shola Isabel Interpretating Date/Time 04/25/2017 12:50:48
--- NOTE | 2017-04-25 14:04 | HHI.PR ---
Subjective Remarks The patient denies any chest pain, shortness of breath, palpitations. Vital signs are stable. Patient afebrile. Objective Vitals Vital Signs Date Time Temp Pulse Resp B/P (MAP) Pulse Ox O2 Delivery O2 Flow Rate FiO2 04/25/17 12:01 98.4 74 18 103/55 (71) 95 04/25/17 12:00 75 04/25/17 08:01 98.2 82 18 140/67 (91) 97 04/25/17 08:00 76 04/25/17 04:00 98.3 75 18 137/65 (89) 98 04/25/17 00:00 97.8 71 16 112/58 (76) 97 04/24/17 20:00 95.6 66 16 93 04/24/17 18:05 97.2 69 18 111/58 (75) 94 04/24/17 17:43 04/24/17 16:10 71 14 110/58 (75) 98 Room Air I/O 04/24/17 04/24/17 04/24/17 04/25/17 04/25/17 04/25/17 07:00 15:00 23:00 07:00 15:00 23:00 Intake Total 2000 ml 480 ml Balance 2000 ml 480 ml Intake Oral 480 ml IV Total 2000 ml Bladder Scan Volume Amount 368 ml # Voids 4 # Bowel Movements 0 Result Diagram: 04/25/17 0533 04/25/17 0533 Imaging Last Impressions Head CT 04/24/171121 Signed Impressions: Service Date/Time: Monday, April 24, 2017 13:04 - CONCLUSION: 1. 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 2. Moderate periventricular white matter small vessel ischemic changes bilaterally. 3. Diffuse central cerebral atrophy. 4. No acute infarct, acute hemorrhage, mass effect or extra-axial fluid collections. Ned Aguilera MD Chest X-Ray 04/24/171121 Signed Impressions: Service Date/Time: Monday, April 24, 2017 11:37 - CONCLUSION: Abnormal chest appearance however technically suboptimal. Recommend good quality PA and lateral views of the chest. Nando Sewell MD Chest CT 04/24/171121 Signed Impressions: Service Date/Time: Monday, April 24, 2017 13:13 - CONCLUSION: 1. No acute intrathoracic trauma. 2. 8mm noncalcified nodular density within the right lower lobe which is indeterminate. This either represents a true pulmonary nodule or nodular infiltrate. Followup CT chest in 3 months may be helpful for further evaluation. 3. Minimal focal infiltrate within the right upper lobe. 4. Cardiomegaly and coronary artery calcifications. 5. 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 6. Degenerative changes and scoliosis of the thoracic spine. Ned Aguilera MD Cervical Spine CT 04/24/17 1122 Signed Impressions: Service Date/Time: Monday, April 24, 2017 13:06 - CONCLUSION: 1. No acute fracture or subluxation. 2. Moderately advanced degenerative spondylosis of the cervical spine. Barry Francois MD Abdomen/Pelvis CT 04/24/171121 Signed Impressions: Service Date/Time: Monday, April 24, 2017 13:12 - CONCLUSION: 1. No acute intra-abdominal trauma. 2. Enlarged prostate. 3. Distended urinary bladder. 4. Uncomplicated colonic diverticulosis. 5. Scattered subcentimeter intermediate density nodules arising from the lower pole the left kidney consistent with complex cysts or small solid lesions. Outpatient contrast enhanced CT may be helpful for further characterization if clinically indicated Ned Aguilera MD Radius/Ulna X-Ray 04/24/17 0000 Signed Impressions: Service Date/Time: Monday, April 24, 2017 11:38 - CONCLUSION: 1. Probable old ununited avulsion fracture of the ulnar styloid process. 2. No acute fracture or dislocation. 3. Diffuse osteopenia. Ned Aguilera MD Objective Remarks GENERAL: Thin appearing elderly male in no acute distress. Well-developed SKIN: Warm and dry. HEAD: Atraumatic. Normocephalic. EYES: Pupils equal and round. No scleral icterus. No injection or drainage. ENT: No nasal bleeding or discharge. Mucous membranes pink and moist. NECK: Trachea midline. No JVD. CARDIOVASCULAR: Regular rate and rhythm. S3, S4. II/ blowing holosystolic murmur apex. RESPIRATORY: No accessory muscle use. Clear to auscultation. Breath sounds equal bilaterally. GASTROINTESTINAL: Abdomen soft, non-tender, nondistended. Hepatic and splenic margins not palpable. MUSCULOSKELETAL: Extremities without clubbing, cyanosis, or edema. No obvious deformities. NEUROLOGICAL: Awake and alert. No obvious cranial nerve deficits. Motor grossly within normal limits. Five out of 5 muscle strength in the arms and legs. Normal speech. PSYCHIATRIC: Appropriate mood and affect; insight and judgment normal. Procedures None Medications and IVs Current Medications Medications (Trade) Dose Ordered Sig/[place] Route Start Time Stop Time Status Last Admin (Tylenol) 650 mg Q4H PRN PO 04/24/17 14:45 (Zofran Inj) 4 mg Q6H PRN IVP 04/24/17 14:45 (Narcan Inj) 0.4 mg UNSCH PRN IV PUSH 04/24/17 14:45 (Marie-Colace) 1 tab BID PO 04/24/17 21:00 04/25/17 08:13 (Milk Of Magnesia Liq) 30 ml Q12H PRN PO 04/24/17 14:45 (Senokot) 17.2 mg Q12H PRN PO 04/24/17 14:45 (Dulcolax Supp) 10 mg DAILY PRN RECTAL 04/24/17 14:45 (Lactulose Liq) 30 ml DAILY PRN PO 04/24/17 14:45 (Cordarone) 100 mg EVERY OTHER DAY PO 04/26/17 09:00 (Lipitor) 20 mg HS PO 04/24/17 21:00 04/24/17 21:37 (Synthroid) 25 mcg DAILY@0600 PO 04/25/17 06:00 04/25/17 05:52 (Theragran) 1 tab DAILY PO 04/25/17 09:00 04/25/17 08:14 (Ecotrin Ec) 81 mg DAILY PO 04/25/17 09:00 04/25/17 08:14 (Flomax) 0.4 mg DAILY PO 04/25/17 11:00 04/25/17 11:02 Sodium Chloride 1,000 ml @ 75 mls/hr [id number] IV 04/25/17 11:00 04/25/17 11:18 Urinary Catheter: No Vascular Central Line Catheter: No A/P Problem List: (1) Fall ICD Code: W19.XXXA - Unspecified fall, initial encounter Plan: Suspected syncopal episode, but etiology uncertain. Patient states he has sustained multiple falls in the recent past. Cardiology consulted, pacemaker interrogation ordered and pending, as per cardiology doubt cardiac etiology. Echocardiogram was ordered as well which is pending. (2) Confusion ICD Code: R41.0 - Disorientation, unspecified Status: Resolved Plan: Confusion seems to have resolved. Patient is awake and alert oriented 3. (3) Anemia ICD Code: D64.9 - Anemia Status: Acute Plan: The patient has chronic anemia. Upon review of records the patient has had an EGD recently on June 12, 2016 which did not reveal any active bleeding. The patient was recommended to follow-up as an outpatient for capsule endoscopy study. Hemoglobin is stable at 9.1. Continue to monitor H&H and follow-up as an outpatient with GI. (4) Acute on chronic kidney disease, stage 3 ICD Code: N18.3 - Chronic kidney disease, stage 3 (moderate); N28.9 - Acute on chronic kidney disease, stage 3 Status: Acute Plan: Baseline creatinine is around 1.7-1.8. Creatinine on admission was 2.5 which now trended down to 1.74. Acute kidney injury likely secondary to prerenal azotemia secondary to dehydration. Started on IV fluids. Continue. (5) CAD (coronary artery disease) ICD Code: I25.9 - CAD (coronary artery disease) Status: Chronic (6) CHF (congestive heart failure) ICD Code: I50.9 - Heart failure, unspecified Status: Acute Plan: Seems to be stable. Monitor for fluid overload since patient is getting IV fluids. Lasix held, continue to hold. Echocardiogram obtained on June 10, 2016 showed a systolic function that was at the lower limit of normal at 50%. Patient also showed a dilated right atrium and moderate to severe tricuspid regurgitation. Patient also had pulmonary hypertension with a PA pressure of 68 mm Hg. (7) Paroxysmal atrial fibrillation ICD Code: I48.0 - Paroxysmal atrial fibrillation Status: Chronic Plan: Remains normal sinus rhythm. The patient was placed on low-dose amiodarone. As per report the patient had a 3 second pause after which she communicated with acute care nursing assistant were indicated to discontinue amiodarone. Patient is not on anticoagulation. Continue to keep off articulation given that the patient is a high risk for falls. (8) Generalized weakness ICD Code: R53.1 - Weakness Status: Acute Plan: Physical therapy evaluation ordered. (9) Rhabdomyolysis ICD Code: M62.82 - Rhabdomyolysis Status: Acute Plan: Patient also presented with elevated CPK of 4538. The patient has been started on IV fluids and CPKs trending down. Continue to monitor CPK and continue IV fluids. (10) Hypothyroidism ICD Code: E03.9 - Hypothyroidism, unspecified Plan: On levothyroxine. Continue. Last TSH was elevated at 5.360 with normal free T4 on May 2016. I will recheck TSH and free T4. Assessment and Plan DVT prophylaxis. SCDs while in bed. No chemoprophylaxis indicated given history of chronic anemia and also recent history of major GI bleed with transfusion of several units of packed red blood cells on May 2016. Discharge Planning Discharge pending echocardiogram and pacemaker interrogation. Problem Qualifiers (1) Fall: Qualified Codes: W19.XXXD - Unspecified fall, subsequent encounter (2) Anemia: Qualified Codes: D64.9 - Anemia, unspecified (3) CAD (coronary artery disease): Qualified Codes: I25.10 - Atherosclerotic heart disease of [place] coronary artery without angina pectoris (4) CHF (congestive heart failure): (5) Rhabdomyolysis: Qualified Codes: T79.6XXD - Traumatic ischemia of muscle, subsequent encounter (6) Hypothyroidism: Qualified Codes: E03.9 - Hypothyroidism, unspecified Zacarias Bird MD Apr 25, 2017 14:04
--- NOTE | 2017-04-25 14:36 | PD.CONS ---
HPI Service Nephrology Consult Requested By Reason for Consult MALINDA Primary Care Physician Unknown History of Present Illness This is an elderly male. He fell a few days ago, has been crawling around in his home for days attempting to locate a phone to call EMS. PMH includes A fib and HTN. His creatinine was 1.7 in May of 2016, GFR 37, consistent with CKD 3. On arrival his creatinine was 2.5, it improved to 1,.7 today. Imaging shows enlarged prostate with distended bladder. He has been given 0.9% NS, sodium level is elevated. We were consulted to assist with management. (Marcelina Smith) Review of Systems Constitutional: COMPLAINS OF: Fatigue Musculoskeletal: COMPLAINS OF: Muscle aches, Stiffness, DENIES: Joint pain ( Marcelina Smith) Past Family Social History Allergies: Coded Allergies: No Known Allergies (Verified Allergy, Unknown, 04/24/17) Past Medical History Atrial fibrillation Hypothyroidism History of congestive heart failure Past Surgical History Mitral valve clip CABG 3 vessels 2007 Pacemaker placement Circumcision 2001 Tonsillectomy 1940 Reported Medications Multiple Vitamin 1 Tab 1 Tab PO DAILY Lasix (Furosemide) 40 Mg Tab 40 Mg PO DAILY Levothyroxine (Levothyroxine Sodium) 25 Mcg Tab 25 Mcg PO DAILY Atorvastatin (Atorvastatin Calcium) 20 Mg Tab 20 Mg PO HS Amiodarone (Amiodarone HCl) 200 Mg Tab 100 Mg PO EVERY OTHER DAY Active Ordered Medications Current Medications Medications (Trade) Dose Ordered Sig/Adair Route Start Time Stop Time Status Last Admin (Tylenol) 650 mg Q4H PRN PO 04/24/17 14:45 (Zofran Inj) 4 mg Q6H PRN IVP 04/24/17 14:45 (Narcan Inj) 0.4 mg UNSCH PRN IV PUSH 04/24/17 14:45 (Marie-Colace) 1 tab BID PO 04/24/17 21:00 04/25/17 08:13 (Milk Of Magnesia Liq) 30 ml Q12H PRN PO 04/24/17 14:45 (Senokot) 17.2 mg Q12H PRN PO 04/24/17 14:45 (Dulcolax Supp) 10 mg DAILY PRN RECTAL 04/24/17 14:45 (Lactulose Liq) 30 ml DAILY PRN PO 04/24/17 14:45 (Cordarone) 100 mg EVERY OTHER DAY PO 04/26/17 09:00 (Lipitor) 20 mg HS PO 04/24/17 21:00 04/24/17 21:37 (Synthroid) 25 mcg DAILY@0600 PO 04/25/17 06:00 04/25/17 05:52 (Theragran) 1 tab DAILY PO 04/25/17 09:00 04/25/17 08:14 (Ecotrin Ec) 81 mg DAILY PO 04/25/17 09:00 04/25/17 08:14 (Flomax) 0.4 mg DAILY PO 04/25/17 11:00 04/25/17 11:02 Sodium Chloride 1,000 ml @ 75 mls/hr [id number] IV 04/25/17 11:00 04/25/17 11:18 Family History Non contributory Social History Single Lives alone No ETOH or smoking (Marcelina Smith) Physical Exam Vital Signs Vital Signs Date Time Temp Pulse Resp B/P (MAP) Pulse Ox O2 Delivery O2 Flow Rate FiO2 04/25/17 12:01 98.4 74 18 103/55 (71) 95 04/25/17 12:00 75 04/25/17 08:01 98.2 82 18 140/67 (91) 97 04/25/17 08:00 76 04/25/17 04:00 98.3 75 18 137/65 (89) 98 04/25/17 00:00 97.8 71 16 112/58 (76) 97 04/24/17 20:00 95.6 66 16 93 04/24/17 18:05 97.2 69 18 111/58 (75) 94 04/24/17 17:43 04/24/17 16:10 71 14 110/58 (75) 98 Room Air Physical Exam Elderly male, awake slow to respond Dried blood on scalp S1/S2, no murmurs present Lungs clear, dec in bases Scattered bruises No edema noted Laboratory Laboratory Tests Test 04/24/17 16:30 04/24/17 16:50 04/25/17 05:33 04/25/17 06:33 Total Creatine Kinase 3195 2356 Creatine Kinase MB 10.1 5.8 Creatine Kinase MB % 0.3 0.2 Troponin I 0.16 0.19 Hemoglobin 9.1 9.1 Hematocrit 26.5 25.7 White Blood Count 10.0 Red Blood Count 2.66 Mean Corpuscular Volume 96.5 Mean Corpuscular Hemoglobin 34.3 Mean Corpuscular Hemoglobin Concent 35.5 Red Cell Distribution Width 13.2 Platelet Count 93 Mean Platelet Volume 10.2 Neutrophils (%) (Auto) 88.2 Lymphocytes (%) (Auto) 5.4 Monocytes (%) (Auto) 6.2 Eosinophils (%) (Auto) 0.0 Basophils (%) (Auto) 0.2 Neutrophils # (Auto) 8.8 Lymphocytes # (Auto) 0.5 Monocytes # (Auto) 0.6 Eosinophils # (Auto) 0.0 Basophils # (Auto) 0.0 CBC Comment AUTO DIFF Differential Comment AUTO DIFF CONFIRMED Platelet Estimate LOW Platelet Morphology Comment NORMAL Blood Urea Nitrogen 55 Creatinine 1.74 Random Glucose 69 Total Protein 5.7 Albumin 3.2 Calcium Level 8.2 Alkaline Phosphatase 68 Aspartate Amino Transf (AST/SGOT) 158 Alanine Aminotransferase (ALT/SGPT) 97 Total Bilirubin 1.2 Sodium Level 146 Potassium Level 4.0 Chloride Level 112 Carbon Dioxide Level 24.9 Anion Gap 9 Estimat Glomerular Filtration Rate 37 (Marcelina SmithP) Result Diagram: 04/25/17 0533 04/25/17 0533 Imaging Last [address] 04/24/171121 Signed Impressions: Service Date/Time: Monday, April 24, 2017 13:04 - CONCLUSION: 1. 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 2. Moderate periventricular white matter small vessel ischemic changes bilaterally. 3. Diffuse central cerebral atrophy. 4. No acute infarct, acute hemorrhage, mass effect or extra-axial fluid collections. Ned Aguilera MD Chest X-Ray 04/24/171121 Signed Impressions: Service Date/Time: Monday, April 24, 2017 11:37 - CONCLUSION: Abnormal chest appearance however technically suboptimal. Recommend good quality PA and lateral views of the chest. Nando Sewell MD Chest CT 04/24/171121 Signed Impressions: Service Date/Time: Monday, April 24, 2017 13:13 - CONCLUSION: 1. No acute intrathoracic trauma. 2. 8mm noncalcified nodular density within the right lower lobe which is indeterminate. This either represents a true pulmonary nodule or nodular infiltrate. Followup CT chest in 3 months may be helpful for further evaluation. 3. Minimal focal infiltrate within the right upper lobe. 4. Cardiomegaly and coronary artery calcifications. 5. 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 6. Degenerative changes and scoliosis of the thoracic spine. Ned Aguilera MD Cervical Spine CT 04/24/17 1122 Signed Impressions: Service Date/Time: Monday, April 24, 2017 13:06 - CONCLUSION: 1. No acute fracture or subluxation. 2. Moderately advanced degenerative spondylosis of the cervical spine. Barry Francois MD Abdomen/Pelvis CT 04/24/17 1122 Signed Impressions: Service Date/Time: Monday, April 24, 2017 13:12 - CONCLUSION: 1. No acute intra-abdominal trauma. 2. Enlarged prostate. 3. Distended urinary bladder. 4. Uncomplicated colonic diverticulosis. 5. Scattered subcentimeter intermediate density nodules arising from the lower pole the left kidney consistent with complex cysts or small solid lesions. Outpatient contrast enhanced CT may be helpful for further characterization if clinically indicated Ned Aguilera MD Radius/Ulna X-Ray 04/24/17 0000 Signed Impressions: Service Date/Time: Monday, April 24, 2017 11:38 - CONCLUSION: 1. Probable old ununited avulsion fracture of the ulnar styloid process. 2. No acute fracture or dislocation. 3. Diffuse osteopenia. Ned Aguilera MD (Marcelina Smith) Assessment and Plan Problem List: (1) Acute kidney injury ICD Codes: N17.9 - Acute kidney failure, unspecified Status: Acute Plan: He has underlying CKD 3, Baseline creatinine 1.7 Renal function has corrected to baseline Imaging suggesting BPH, place kidd and start Flomax daily repeat labs tomorrow Mild rhabdomyolysis noted, continue IVF Change to 1/2 NS @ 75cchr Avoid nephrotoxic agents. Obtain UA for analysis. Voiding Trial prior to D/C. (2) Fall ICD Codes: W19.XXXA - Unspecified fall, initial encounter Plan: may need PT/OT Imaging negative for fractures (3) Hypernatremia ICD Codes: E87.0 - Hyperosmolality and hypernatremia Plan: IV hydration, follow labs (4) Anemia ICD Codes: D64.9 - Anemia Status: Acute Plan: Mild, monitor for now (Marcelina Smith) Assessment and Plan patient was seen and examined. Agree with above assessment and plan. Acute on chronic kidney disease: due to dehydration, possible rhabdomyolysis, and urinary retention. Started 1/2NS. Monitor urine output and renal function. (Hao Senior MD) Problem Qualifiers (1) Fall: Qualified Codes: W19.XXXD - Unspecified fall, subsequent encounter (2) Anemia: Qualified Codes: D64.9 - Anemia, unspecified Marcelina Smith Apr 25, 2017 14:35 Hao Senior MD Apr 25, 2017 18:10
[2017-04-25] MEDS: ATORVASTATIN 20 MG TAB PO SCH (21:40)
[2017-04-26] VITALS (11 sets, daily range): BP systolic 98–131; BP diastolic 56–66; PULSE 69–97; RESP 16–19; TEMP 97.3–98.4; O2SAT 94–97
[2017-04-26] MEDS: LEVOTHYROXINE SODIUM 25 MCG TAB PO SCH (06:53)
[2017-04-26 07:22] LABS: ALBUMIN 2.9 GM/DL (3.4-5.0); BICARBONATE 25.2 MEQ/L (21.0-32.0); CALCIUM 8.1 MG/DL (8.5-10.1); CREATININE 1.59 MG/DL (0.60-1.30); MAGNESIUM 2.6 MG/DL (1.5-2.5); PHOSPHORUS 2.2 MG/DL (2.5-4.9)
[2017-04-26 08:08] LABS: BACTERIA, URINE OCC /hpf; BILIRUBIN, URINE NEG (NEG); BLOOD, URINE TRACE (NEG); GLUCOSE,URINE NEG (NEG); HYALINE CAST, URINE 1 /lpf (RARE); KETONE, URINE NEG (NEG); MUCUS URINE FEW /lpf (OCC); NITRITE,URINE NEG (NEG); PH, URINE 5.5 (5.0-8.5); SQUAMOUS EPITHELIAL CELL URINE <1 /hpf (0-5); URIC ACID CRYSTALS, URINE MANY /hpf; URINE COLOR YELLOW (YELLW/STRAW); URINE LEUKOCYTE ESTERASE NEG (NEG)
[2017-04-26] MEDS: TAMSULOSIN HCL 0.4 MG CAP PO SCH (08:45)
[2017-04-26] MEDS: DOCUSATE SODIUM 50 MG/SENNA 8.6 MG TAB PO SCH ×2 (08:45→20:38)
[2017-04-26] MEDS: MULTIVITAMIN TAB PO SCH (08:45)
[2017-04-26] MEDS: ASPIRIN EC 81 MG TABEC PO SCH (08:45)
[2017-04-26] MEDS: AMIODARONE 200 MG TAB PO SCH (08:46)
[2017-04-26] MEDS: SODIUM CHLOR 0.45% 1000 ML INJ 1,000 ML IV SCH (11:22)
--- NOTE | 2017-04-26 11:26 | HHI.NPPN ---
Subjective Renal Failure: Acute Interval History He is awake, no specific complaints. Renal function is better. (Marcelina Smith) Objective Data Data 04/26/17 04/27/17 19:00 07:00 Intake Total 1280 ml Output Total 600 ml Balance 680 ml Intake Oral 480 ml IV Total 800 ml Output Urine Total 600 ml Vital Signs Date Time Temp Pulse Resp B/P (MAP) Pulse Ox O2 Delivery O2 Flow Rate FiO2 04/26/17 08:01 98.4 77 18 127/66 (86) 95 04/26/17 07:05 98.0 97 16 122/63 (82) 96 04/26/17 04:00 71 04/26/17 00:28 98.0 76 16 131/66 (87) 97 04/26/17 00:00 69 04/25/17 20:50 98.0 80 16 136/67 (90) 96 04/25/17 20:00 73 04/25/17 16:01 98.5 73 20 107/55 (72) 94 04/25/17 16:00 69 04/25/17 12:01 98.4 74 18 103/55 (71) 95 04/25/17 12:00 75 (Marcelina Smith) -: 04/25/17 0533 04/26/17 0348 Imaging Last [address] 04/24/171121 Signed Impressions: Service Date/Time: Monday, April 24, 2017 13:04 - CONCLUSION: 1. 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 2. Moderate periventricular white matter small vessel ischemic changes bilaterally. 3. Diffuse central cerebral atrophy. 4. No acute infarct, acute hemorrhage, mass effect or extra-axial fluid collections. Ned Aguilera MD Chest X-Ray 04/24/171121 Signed Impressions: Service Date/Time: Monday, April 24, 2017 11:37 - CONCLUSION: Abnormal chest appearance however technically suboptimal. Recommend good quality PA and lateral views of the chest. Nando Sewell MD Chest CT 04/24/171121 Signed Impressions: Service Date/Time: Monday, April 24, 2017 13:13 - CONCLUSION: 1. No acute intrathoracic trauma. 2. 8mm noncalcified nodular density within the right lower lobe which is indeterminate. This either represents a true pulmonary nodule or nodular infiltrate. Followup CT chest in 3 months may be helpful for further evaluation. 3. Minimal focal infiltrate within the right upper lobe. 4. Cardiomegaly and coronary artery calcifications. 5. 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 6. Degenerative changes and scoliosis of the thoracic spine. Ned Aguilera MD Cervical Spine CT 04/24/17 1122 Signed Impressions: Service Date/Time: Monday, April 24, 2017 13:06 - CONCLUSION: 1. No acute fracture or subluxation. 2. Moderately advanced degenerative spondylosis of the cervical spine. Barry Francois MD Abdomen/Pelvis CT 04/24/17 1122 Signed Impressions: Service Date/Time: Monday, April 24, 2017 13:12 - CONCLUSION: 1. No acute intra-abdominal trauma. 2. Enlarged prostate. 3. Distended urinary bladder. 4. Uncomplicated colonic diverticulosis. 5. Scattered subcentimeter intermediate density nodules arising from the lower pole the left kidney consistent with complex cysts or small solid lesions. Outpatient contrast enhanced CT may be helpful for further characterization if clinically indicated Ned Aguilera MD Radius/Ulna X-Ray 04/24/17 0000 Signed Impressions: Service Date/Time: Monday, April 24, 2017 11:38 - CONCLUSION: 1. Probable old ununited avulsion fracture of the ulnar styloid process. 2. No acute fracture or dislocation. 3. Diffuse osteopenia. 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 [employer]) Neck Neck Exam: Jugular Vein Distension (Marcelina Smith B. [employer]) Pulmonary Resp Exam: Clear Bilaterally, Breath Sounds Equal (Marcelina Smith B. [employer]) Cardiology CV Exam: Regular, Normal Sinus Rhythm, Good Perfusion (Marcelina Smith B. [employer]) Gastrointestinal/Abdomen GI Exam: Soft, Non-Tender, Bowel Sounds Present (Marcelina Smith B. [employer]) Musculoskeletal MS Exam: Joints Intact, Normal Tone (Marcelina Smith) Integumentary Skin Exam: Warm, Dry, Intact (Marcelina Smith) Extremeties Extremities Exam: No Edema, Pedal Pulses Palpable (Marcelina Smith) Neurologic Neuro Exam: Alert, Awake, Oriented, Speech Clear, Moving All Extremities (Marcelina Smith) Psychiatric Psych Exam: Appropriate Responses (Marcelina Smith) Assessment/Plan Discussed Condition With: Patient Assessment Summary: MALINDA/Acute Renal Failure Problem List: (1) Acute kidney injury ICD Codes: N17.9 - Acute kidney failure, unspecified Status: Acute Plan: He has underlying CKD 3 MALINDA due to obstructive uropathy Renal function has improved voiding trial prior to discharge Stop IVF Avoid nephrotoxic agents. (2) Fall ICD Codes: W19.XXXA - Unspecified fall, initial encounter Plan: may need PT/OT Imaging negative for fractures (3) Hypernatremia ICD Codes: E87.0 - Hyperosmolality and hypernatremia Plan: Improved (4) Anemia ICD Codes: D64.9 - Anemia Status: Acute Plan: Mild, monitor for now (Marcelina Smith) Plan patient was seen and examined. Agree with above assessment and plan. Renal function has improved. (Hao Senior MD) Problem Qualifiers (1) Fall: Qualified Codes: W19.XXXD - Unspecified fall, subsequent encounter (2) Anemia: Qualified Codes: D64.9 - Anemia, unspecified Marcelina Smith Apr 26, 2017 11:25 Hao Senior MD Apr 26, 2017 16:44
[2017-04-26 11:58] LABS: AUTOMATED NEUTROPHIL # 5.6 TH/MM3 (1.8-7.7); BASOPHIL % 0.1 % (0.0-2.0); EOSINOPHIL % 0.7 % (0.0-4.0); HEMOGLOBIN 8.4 GM/DL (13.0-17.0); LYMPHOCYTE # 0.7 TH/MM3 (1.0-4.8); MEAN CELL VOLUME 96.9 FL (80.0-100.0); MEAN CORPUSCULAR HEMOGLOBIN 33.9 PG (27.0-34.0); MONO % 8.2 % (0.0-8.0); MONOCYTE # 0.6 TH/MM3 (0-0.9); PLATELET COUNT 86 TH/MM3 (150-450); RED BLOOD COUNT 2.48 MIL/MM3 (4.50-5.90); RED CELL DISTRIBUTION WIDTH 13.2 % (11.6-17.2)
[2017-04-26 13:04] LABS: BANDS 1 % (0-6); CORRECTED NUCLEATED RBC 1 /100 WBC (0-0); LYMPHOCYTES 10 % (9-44); MONOCYTES 7 % (0-8); NEUTROPHIL # MANUAL DIFF 5.8 TH/MM3 (1.8-7.7); NUCLEATED RED BLOOD CELL 1 (0-0); POLYS (SEG NEUTROPHILS) 82 % (16-70)
--- NOTE | 2017-04-26 16:04 | HHI.PR ---
Subjective Remarks c/o double vision. Denies cp/sob. Objective Vitals Vital Signs Date Time Temp Pulse Resp B/P (MAP) Pulse Ox O2 Delivery O2 Flow Rate FiO2 04/26/17 12:11 97.7 71 18 107/56 (73) 94 04/26/17 12:00 75 04/26/17 11:43 Room Air 04/26/17 08:01 98.4 77 18 127/66 (86) 95 04/26/17 08:00 72 04/26/17 07:05 98.0 97 16 122/63 (82) 96 04/26/17 04:00 71 04/26/17 00:28 98.0 76 16 131/66 (87) 97 04/26/17 00:00 69 04/25/17 20:50 98.0 80 16 136/67 (90) 96 04/25/17 20:00 73 04/25/17 16:01 98.5 73 20 107/55 (72) 94 04/25/17 16:00 69 I/O 04/25/17 04/25/17 04/25/17 04/26/17 04/26/17 04/26/17 07:00 15:00 23:00 07:00 15:00 23:00 Intake Total 480 ml 1720 ml 1280 ml Output Total 1150 ml 600 ml Balance 480 ml 570 ml 680 ml Intake Oral 480 ml 720 ml 480 ml IV Total 1000 ml 800 ml Output Urine Total 1150 ml 600 ml Bladder Scan Volume Amount 368 ml # Voids 4 # Bowel Movements 0 0 Result Diagram: 04/26/17 1015 04/26/17 0348 Imaging Last Impressions Head CT 04/24/171121 Signed Impressions: Service Date/Time: Monday, April 24, 2017 13:04 - CONCLUSION: 1. 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 2. Moderate periventricular white matter small vessel ischemic changes bilaterally. 3. Diffuse central cerebral atrophy. 4. No acute infarct, acute hemorrhage, mass effect or extra-axial fluid collections. Ned Aguilera MD Chest X-Ray 04/24/171121 Signed Impressions: Service Date/Time: Monday, April 24, 2017 11:37 - CONCLUSION: Abnormal chest appearance however technically suboptimal. Recommend good quality PA and lateral views of the chest. Nando Sewell MD Chest CT 04/24/171121 Signed Impressions: Service Date/Time: Monday, April 24, 2017 13:13 - CONCLUSION: 1. No acute intrathoracic trauma. 2. 8mm noncalcified nodular density within the right lower lobe which is indeterminate. This either represents a true pulmonary nodule or nodular infiltrate. Followup CT chest in 3 months may be helpful for further evaluation. 3. Minimal focal infiltrate within the right upper lobe. 4. Cardiomegaly and coronary artery calcifications. 5. 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 6. Degenerative changes and scoliosis of the thoracic spine. Ned Aguilera MD Cervical Spine CT 04/24/171121 Signed Impressions: Service Date/Time: Monday, April 24, 2017 13:06 - CONCLUSION: 1. No acute fracture or subluxation. 2. Moderately advanced degenerative spondylosis of the cervical spine. Barry Francois MD Abdomen/Pelvis CT 04/24/171121 Signed Impressions: Service Date/Time: Monday, April 24, 2017 13:12 - CONCLUSION: 1. No acute intra-abdominal trauma. 2. Enlarged prostate. 3. Distended urinary bladder. 4. Uncomplicated colonic diverticulosis. 5. Scattered subcentimeter intermediate density nodules arising from the lower pole the left kidney consistent with complex cysts or small solid lesions. Outpatient contrast enhanced CT may be helpful for further characterization if clinically indicated Ned Aguilera MD Radius/Ulna X-Ray 04/24/17 0000 Signed Impressions: Service Date/Time: Monday, April 24, 2017 11:38 - CONCLUSION: 1. Probable old ununited avulsion fracture of the ulnar styloid process. 2. No acute fracture or dislocation. 3. Diffuse osteopenia. Ned Aguilera MD Objective Remarks GENERAL: Thin appearing elderly male in no acute distress. Well-developed SKIN: Warm and dry. HEAD: Atraumatic. Normocephalic. EYES: Pupils equal and round. No scleral icterus. No injection or drainage. ENT: No nasal bleeding or discharge. Mucous membranes pink and moist. NECK: Trachea midline. No JVD. CARDIOVASCULAR: Regular rate and rhythm. S3, S4. II/ blowing holosystolic murmur apex. RESPIRATORY: No accessory muscle use. Clear to auscultation. Breath sounds equal bilaterally. GASTROINTESTINAL: Abdomen soft, non-tender, nondistended. Hepatic and splenic margins not palpable. MUSCULOSKELETAL: Extremities without clubbing, cyanosis, or edema. No obvious deformities. NEUROLOGICAL: Awake and alert. No obvious cranial nerve deficits. Motor grossly within normal limits. Five out of 5 muscle strength in the arms and legs. Normal speech. PSYCHIATRIC: Appropriate mood and affect; insight and judgment normal. Procedures None Medications and IVs Current Medications Medications (Trade) Dose Ordered Sig/Adair Route Start Time Stop Time Status Last Admin (Tylenol) 650 mg Q4H PRN PO 04/24/17 14:45 (Zofran Inj) 4 mg Q6H PRN IVP 04/24/17 14:45 (Narcan Inj) 0.4 mg UNSCH PRN IV PUSH 04/24/17 14:45 (Marie-Colace) 1 tab BID PO 04/24/17 21:00 04/26/17 08:45 (Milk Of Magnesia Liq) 30 ml Q12H PRN PO 04/24/17 14:45 (Senokot) 17.2 mg Q12H PRN PO 04/24/17 14:45 (Dulcolax Supp) 10 mg DAILY PRN RECTAL 04/24/17 14:45 (Lactulose Liq) 30 ml DAILY PRN PO 04/24/17 14:45 (Cordarone) 100 mg EVERY OTHER DAY PO 04/26/17 09:00 04/26/17 08:46 (Lipitor) 20 mg HS PO 04/24/17 21:00 04/25/17 21:40 (Synthroid) 25 mcg DAILY@0600 PO 04/25/17 06:00 04/26/17 06:53 (Theragran) 1 tab DAILY PO 04/25/17 09:00 04/26/17 08:45 (Ecotrin Ec) 81 mg DAILY PO 04/25/17 09:00 04/26/17 08:45 (Flomax) 0.4 mg DAILY PO 04/25/17 11:00 04/26/17 08:45 A/P Problem List: (1) Fall ICD Code: W19.XXXA - Unspecified fall, initial encounter Plan: Suspected syncopal episode, but etiology uncertain. Patient states he has sustained multiple falls in the recent past. Cardiology consulted, pacemaker interrogation ordered and pending, as per cardiology doubt cardiac etiology. Echocardiogram was ordered as well which is pending. 04/26 the patient complains of double vision. I will order an MRI of the brain and consult neurology. (2) Confusion ICD Code: R41.0 - Disorientation, unspecified Status: Resolved Plan: Confusion seems to have resolved. Patient is awake and alert oriented 3. (3) Anemia ICD Code: D64.9 - Anemia Status: Acute Plan: The patient has chronic anemia. Upon review of records the patient has had an EGD recently on June 12, 2016 which did not reveal any active bleeding. The patient was recommended to follow-up as an outpatient for capsule endoscopy study. Hemoglobin is stable at 9.1. Continue to monitor H&H and follow-up as an outpatient with GI. 04/26 Hemoglobin trending down. Check stool guaiac. The patient denies any melena or hematochezia. Monitor CBC and if hemoglobin continues to trend down will consult GI. (4) Acute on chronic kidney disease, stage 3 ICD Code: N18.3 - Chronic kidney disease, stage 3 (moderate); N28.9 - Acute on chronic kidney disease, stage 3 Status: Acute Plan: Baseline creatinine is around 1.7-1.8. Creatinine on admission was 2.5 which now trended down to 1.74. Acute kidney injury thought to be secondary to prerenal azotemia initially. Nephrology consulted who ordered a CT abdomen and pelvis which suggested BPH. A Esparza catheter was placed and the patient was started on Flomax. Creatinine is now trending down. Acute kidney injury likely secondary to postobstructive nephropathy. Patient cleared to be discharged by nephrology. (5) CAD (coronary artery disease) ICD Code: I25.9 - CAD (coronary artery disease) Status: Chronic Plan: Seems to be stable. Patient seen by cardiology. Follow cardiology recommendations. Continue aspirin, Lipitor, furosemide held. (6) CHF (congestive heart failure) ICD Code: I50.9 - Heart failure, unspecified Status: Acute Plan: Seems to be stable. Monitor for fluid overload since patient is getting IV fluids. Lasix held, continue to hold. Echocardiogram obtained on June 10, 2016 showed a systolic function that was at the lower limit of normal at 50%. Patient also showed a dilated right atrium and moderate to severe tricuspid regurgitation. Patient also had pulmonary hypertension with a PA pressure of 68 mm Hg. (7) Paroxysmal atrial fibrillation ICD Code: I48.0 - Paroxysmal atrial fibrillation Status: Chronic Plan: Remains normal sinus rhythm. The patient was placed on low-dose amiodarone. (8) Generalized weakness ICD Code: R53.1 - Weakness Status: Acute Plan: Physical therapy evaluation ordered. Physical therapy recommended rehab. (9) Rhabdomyolysis ICD Code: M62.82 - Rhabdomyolysis Status: Acute Plan: Patient also presented with elevated CPK of 4538. The patient has been started on IV fluids and CPKs trending down. Continue to monitor CPK and continue IV fluids. 04/26 CPK trending down - 1137 today, Continue IV fluids and monitor CPK. (10) Hypothyroidism ICD Code: E03.9 - Hypothyroidism, unspecified Plan: On levothyroxine. Continue. Last TSH was elevated at 5.360 with normal free T4 on May 2016. I will recheck TSH and free T4. (11) Thrombocytopenia ICD Code: D69.6 - Thrombocytopenia, unspecified Status: Chronic Plan: Continue to monitor platelets. Patient not with active bleeding. Assessment and Plan DVT prophylaxis. SCDs while in bed. No chemoprophylaxis indicated given history of chronic anemia and also recent history of major GI bleed with transfusion of several units of packed red blood cells on May 2016. Discharge Planning Pending stabilization of hemoglobin and improvement of ck. Problem Qualifiers (1) Fall: Qualified Codes: W19.XXXD - Unspecified fall, subsequent encounter (2) Anemia: Qualified Codes: D64.9 - Anemia, unspecified (3) CAD (coronary artery disease): Qualified Codes: I25.10 - Atherosclerotic heart disease of [place] coronary artery without angina pectoris (4) CHF (congestive heart failure): (5) Rhabdomyolysis: Qualified Codes: T79.6XXD - Traumatic ischemia of muscle, subsequent encounter (6) Hypothyroidism: Qualified Codes: E03.9 - Hypothyroidism, unspecified Zacarias Bird MD Apr 26, 2017 16:04
[2017-04-26 16:40] LABS: FREE T4 0.87 NG/DL (0.76-1.46)
--- NOTE | 2017-04-26 17:47 | ECHRPT ---
Indication: Heart failure, unspecified CONCLUSIONS The left ventricular systolic function is mildly reduced with an estimated ejection fraction in the range of 45- 50%. Wall thickness is measured at the upper limits of normal. Normal left ventricular size. Mild mitral valve regurgitation. Mitral annular calcification is present. The left atrial size is mildly dilated. The right atrial size is moderately dilated. There is a pacemaker wire present in the right atrial cavity. There is moderate to severe tricuspid valve regurgitation. The estimated pulmonary arterial pressure is 53.6 mmHg. There is estimated moderate pulmonary hypertension present (range 50-60 mmHg). Mild to moderate aortic valve stenosis. Aortic valve area is 1.3 cm. BP: 103 / 55 HR: 74 Rhythm: Other MEASUREMENTS (Male / Female) Normal Values Technical Quality:Fair 2D ECHO LV Diastolic Diameter PLAX 4.9 cm 4.2 - 5.9 / 3.9 - 5.3 cm LV Systolic Diameter PLAX 4.0 cm IVS Diastolic Thickness 1.1 cm 0.6 - 1.0 / 0.6 - 0.9 cm LVPW Diastolic Thickness 1.1 cm 0.6 - 1.0 / 0.6 - 0.9 cm LV Relative Wall Thickness 0.5 LVOT Diameter 2.2 cm M-MODE Aortic Root Diameter MM 2.7 cm LA Systolic Diameter MM 4.2 cm LA Ao Ratio MM 1.6 DOPPLER AV Peak Velocity 247.8 cm/s AV Peak Gradient 24.6 mmHg AV Mean Gradient 14.2 mmHg AV Velocity Time Integral 50.2 cm LVOT Peak Velocity 83.9 cm/s LVOT Peak Gradient 2.8 mmHg AV Area Cont Eq pk 1.3 cm MR Peak Velocity 416.0 cm/s MR Peak Gradient 69.2 mmHg Mitral E Point Velocity 114.0 cm/s Mitral A Point Velocity 83.9 cm/s Mitral E to A Ratio 1.4 LV E' Lateral Velocity 11.8 cm/s Mitral E to LV E' Lateral Ratio 9.7 LV E' Septal Velocity 5.2 cm/s Mitral E to LV E' Septal Ratio 22.1 TR Peak Velocity 330.0 cm/s TR Peak Gradient 43.6 mmHg Right Atrial Pressure 10.0 mmHg Pulmonary Artery Systolic Pressu 53.6 mmHg Right Ventricular Systolic Press 53.6 mmHg PV Peak Velocity 109.0 cm/s PV Peak Gradient 4.8 mmHg FINDINGS LEFT VENTRICLE The left ventricular systolic function is mildly reduced with an estimated ejection fraction in the range of 45- 50%. Wall thickness is measured at the upper limits of normal. Normal left ventricular size. RIGHT VENTRICLE Normal right ventricular size and systolic function. LEFT ATRIUM The left atrial size is mildly dilated. RIGHT ATRIUM The right atrial size is moderately dilated. There is a pacemaker wire present in the right atrial cavity. ATRIAL SEPTUM Normal atrial septal thickness without atrial level shunting by limited color doppler interrogation. AORTA The aortic root and proximal ascending aorta are normal in size on limited imaging. MITRAL VALVE Mild mitral valve regurgitation. Mitral annular calcification is present. AORTIC VALVE Mild to moderate aortic valve stenosis. Aortic valve area is 1.3 cm. TRICUSPID VALVE There is moderate to severe tricuspid valve regurgitation. The estimated pulmonary arterial pressure is 53.6 mmHg. There is estimated moderate pulmonary hypertension present (range 50-60 mmHg). PULMONARY VALVE No pulmonary valve regurgitation or stenosis. VESSELS The inferior vena cava is normal in size. PERICARDIUM No pericardial effusion. Shola Isabel MD, FACC (Electronically Signed) Final Date:26 April 2017 17:46
[2017-04-26] MEDS: ATORVASTATIN 20 MG TAB PO SCH (20:39)
[2017-04-27] VITALS (7 sets, daily range): BP systolic 102–136; BP diastolic 56–74; PULSE 69–87; RESP 16–20; TEMP 97.6–98.4; O2SAT 94–98
[2017-04-27] MEDS: LEVOTHYROXINE SODIUM 25 MCG TAB PO SCH (06:07)
[2017-04-27 06:49] LABS: ALBUMIN 2.7 GM/DL (3.4-5.0); BICARBONATE 26.6 MEQ/L (21.0-32.0); CALCIUM 8.3 MG/DL (8.5-10.1); CREATININE 1.35 MG/DL (0.60-1.30); PHOSPHORUS 1.9 MG/DL (2.5-4.9); TROPONIN I 0.1 NG/ML (0.02-0.05)
[2017-04-27 07:10] LABS: HEMATOCRIT 25.9 % (39.0-51.0); HEMOGLOBIN 8.8 GM/DL (13.0-17.0); MEAN CELL VOLUME 100.2 FL (80.0-100.0); MEAN CORPUSCULAR HEMOGLOBIN 34.2 PG (27.0-34.0); MEAN CORPUSCULAR HGB CONC 34.2 % (32.0-36.0); MEAN PLATELET VOLUME 10.5 FL (7.0-11.0); PLATELET COUNT 109 TH/MM3 (150-450); RED BLOOD COUNT 2.59 MIL/MM3 (4.50-5.90); WHITE BLOOD COUNT 7.6 TH/MM3 (4.0-11.0)
[2017-04-27] MEDS: MULTIVITAMIN TAB PO SCH (07:37)
[2017-04-27] MEDS: TAMSULOSIN HCL 0.4 MG CAP PO SCH (07:37)
[2017-04-27] MEDS: DOCUSATE SODIUM 50 MG/SENNA 8.6 MG TAB PO SCH ×2 (07:37→21:02)
[2017-04-27] MEDS: ASPIRIN EC 81 MG TABEC PO SCH (07:37)
--- NOTE | 2017-04-27 08:36 | MB ---
cc: SILVER DELVALLE M.D. DATE OF CONSULTATION 04/26/2017 REASON FOR CONSULTATION Double vision. HISTORY OF PRESENT ILLNESS Mr. Mccallum is an 86-year-old man who has atrial fibrillation, congestive failure and a pacemaker in place, who came to the ER with delirium and confusion. This was felt to be due to dehydration and has improved with hydration. He now notices double vision which he has had for about 2 days. He states it is horizontal diplopia. Has no other focal weakness. PAST MEDICAL HISTORY 1. History of mitral valve clip. 2. CABG x3. 3. Pacemaker placement. 4. Circumcision. 5. Tonsillectomy. MEDICATIONS Current medications are: 1. Amiodarone. 2. Tamsulosin. 3. Theragran. 4. Aspirin. 5. Synthroid. 6. Marie-Colace. 7. Lipitor. 8. Tylenol. 9. Zofran. 10.Narcan. 11.Dulcolax. NEUROLOGICAL EXAMINATION VITAL SIGNS: Blood pressure 109/56, pulse 83, respirations 19, temperature 97 degrees. HIGHER CORTICAL FUNCTION: He is alert and oriented. Speech is fluent. CRANIAL NERVES: There appears to be a mild left lateral rectus palsy. Pupils are equal and reactive. There is no ptosis. MOTOR: Exam is normal. 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 Moderate ischemic changes noted but no acute change. LABORATORY White count 7000, hemoglobin 8.4, hematocrit 24%, platelet count 86,000. Sodium 146, potassium 4, chloride 112, CO2 24.9, BUN 55, creatinine 1.74, GFR 37, glucose 69. IMPRESSION Diplopia, possible left 6th nerve palsy. RECOMMENDATIONS Will check additional labs including a thyroid panel, rule out thyroid eye disease, B12 level, myasthenia gravis antibody panel. MD MARISEL Mack/EVA /5:06 PM /8:07 AM
--- NOTE | 2017-04-27 11:17 | HHI.NPPN ---
Subjective Renal Failure: Acute Interval History Renal function has improved. Still with double vision. (Marcelina Smith) Review of Systems Eyes Eyes: Vision Change Eyes Remarks B/L diplopia (Marcelina Smith) Objective Data Data Vital Signs Date Time Temp Pulse Resp B/P (MAP) Pulse Ox O2 Delivery O2 Flow Rate FiO2 04/27/17 08:30 Room Air 04/27/17 08:00 97.6 73 20 136/74 (94) 96 04/27/17 08:00 78 04/27/17 04:00 97.8 70 18 120/58 (78) 95 04/27/17 04:00 78 04/27/17 00:00 97.8 87 18 119/60 (79) 98 04/27/17 00:00 69 04/26/17 20:00 73 04/26/17 20:00 97.3 76 16 98/58 (71) 97 04/26/17 16:24 Room Air 04/26/17 16:16 97.8 83 19 109/56 (73) 97 04/26/17 16:00 72 04/26/17 12:11 97.7 71 18 107/56 (73) 94 04/26/17 12:00 75 04/26/17 11:43 Room Air (Marcelina Smith) -: 04/27/17 0511 04/27/17 0511 Imaging Last [address] 04/24/172 Signed Impressions: Service Date/Time: Monday, April 24, 2017 13:04 - CONCLUSION: 1. 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 2. Moderate periventricular white matter small vessel ischemic changes bilaterally. 3. Diffuse central cerebral atrophy. 4. No acute infarct, acute hemorrhage, mass effect or extra-axial fluid collections. Ned Aguilera MD Chest X-Ray 04/24/17 112 Signed Impressions: Service Date/Time: Monday, April 24, 2017 11:37 - CONCLUSION: Abnormal chest appearance however technically suboptimal. Recommend good quality PA and lateral views of the chest. Nando Sewell MD Chest CT 04/24/17 1122 Signed Impressions: Service Date/Time: Monday, April 24, 2017 13:13 - CONCLUSION: 1. No acute intrathoracic trauma. 2. 8mm noncalcified nodular density within the right lower lobe which is indeterminate. This either represents a true pulmonary nodule or nodular infiltrate. Followup CT chest in 3 months may be helpful for further evaluation. 3. Minimal focal infiltrate within the right upper lobe. 4. Cardiomegaly and coronary artery calcifications. 5. 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 6. Degenerative changes and scoliosis of the thoracic spine. Ned Aguilera MD Cervical Spine CT 04/24/17 1122 Signed Impressions: Service Date/Time: Monday, April 24, 2017 13:06 - CONCLUSION: 1. No acute fracture or subluxation. 2. Moderately advanced degenerative spondylosis of the cervical spine. Brary Francois MD Abdomen/Pelvis CT 04/24/172 Signed Impressions: Service Date/Time: Monday, April 24, 2017 13:12 - CONCLUSION: 1. No acute intra-abdominal trauma. 2. Enlarged prostate. 3. Distended urinary bladder. 4. Uncomplicated colonic diverticulosis. 5. Scattered subcentimeter intermediate density nodules arising from the lower pole the left kidney consistent with complex cysts or small solid lesions. Outpatient contrast enhanced CT may be helpful for further characterization if clinically indicated Ned Aguilera MD Tubes & Lines: [place] (Marcelina Smith B. MANAGER TRA[employer]ING [employer] DEVELOPMENT) Physical Exam General Appearance: Well Developed, No Acute Distress, Comfortable (Jason Smithon B. MANAGER TRA[employer]ELOPMENT) Throat Throat Exam: Oral Muc[place] & Moist (SarahMarcelina B. MANAGER TRA[employer]ING [employer] DEVELOPMENT) Neck Neck Exam: Jugular Vein Distension (SarahMarcelina B. MANAGER TRA[employer]ING [employer] DEVELOPMENT) Pulmonary Resp Exam: Clear Bilaterally, Breath Sounds Equal (Sarah,Marcelina B. MANAGER TRA[employer]ING [employer] DEVELOPMENT) Cardiology CV Exam: Regular, Normal Sinus Rhythm, Good Perfusion (SarahMarcelina B. MANAGER TRA[employer]ING [employer] DEVELOPMENT) Gastrointestinal/Abdomen GI Exam: Soft, Non-Tender, Bowel Sounds Present (Jason Smithon B. MANAGER TRA[employer]ING [employer] DEVELOPMENT) Musculoskeletal MS Exam: Joints Intact, Normal Tone (Sarah,Marcelina B. MANAGER TRA[employer]ING [employer] DEVELOPMENT) Integumentary Skin Exam: Warm, Dry, Intact (Sarah,Marcelina B. MANAGER TRA[employer]ING [employer] DEVELOPMENT) Extremeties Extremities Exam: No Edema, Pedal Pulses Palpable (Sarah,Marcelina B. 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 If unsuccessful may need to be discharged with leg bag and urology follow up Tolerating oral fluids. (2) Fall ICD Codes: W19.XXXA - Unspecified fall, initial encounter Plan: may need PT/OT Imaging negative for fractures (3) Hypernatremia ICD Codes: E87.0 - Hyperosmolality and hypernatremia Plan: Improved (4) Anemia ICD Codes: D64.9 - Anemia Status: Acute Plan: Mild, monitor for now Plan We will sign off at this time. Please call us if needed. (Marcelina Smith) Plan Patient was seen and examined. Agree with above assessment and plan. (Hao Senior MD) Problem Qualifiers (1) Fall: Qualified Codes: W19.XXXD - Unspecified fall, subsequent encounter (2) Anemia: Qualified Codes: D64.9 - Anemia, unspecified Marcelina Smith Apr 27, 2017 11:17 Hao Senior MD Apr 27, 2017 15:45
--- NOTE | 2017-04-27 15:37 | RADRPT ---
EXAM DATE/TIME: 04/27/2017 14:20 [facility] COMPARISON: No previous studies available for comparison. INDICATIONS : Diplopia. CONTRAST: 50 cc Omniscan (gadodiamide) IV MEDICAL HISTORY : Congestive heart failure. Hypothyroidism. Hypertension. SURGICAL HISTORY : Pacemaker. Tonsillectomy. ENCOUNTER: Initial ACUITY: 2 day PAIN SCORE: 0/10 LOCATION: head TECHNIQUE: Multiplanar, multisequence MRI of the brain was performed both prior to and following the administrat ion of paramagnetic contrast. FINDINGS: There is marked central and cortical atrophy with dilatation of ventricular and sulcal spaces. Exten sive periventricular white matter changes are evident. There is focally restricted diffusion basalga nglia on the left and I cannot confirm as an acute ischemic event on the ADC mapping. There is no parenchymal hemorrhage. Posterior fossa is unremarkable. There is no abnormal contrast enhancement. Orbits and visual sinuses are unremarkable. CONCLUSION: Marked central and cortical atrophy Focal restricted diffusion basalganglia on the left without ADC confirmation. This is probably not r elated to an acute ischemic event. No parenchymal hemorrhage. Iftikhar Mittal MD FACR on April 27, 2017 at 15:32 Board Certified Radiologist. This report was verified electronically.
--- NOTE | 2017-04-27 15:37 | RADRPT ---
EXAM DATE/TIME: 04/27/2017 14:20 [facility] COMPARISON: No previous studies available for comparison. INDICATIONS : Diplopia. MEDICAL HISTORY : Congestive heart failure. Hypertension. Hypothyroidism. SURGICAL HISTORY : Pacemaker. Tonsillectomy. ENCOUNTER: Initial ACUITY: 2 day PAIN SCORE: 0/10 LOCATION: head Please note a normal MRA of the brain does not entirely exclude the possibility of a small aneurysm, nor the possibility of distal intracranial vessel disease. TECHNIQUE: 3D time of flight MRA was performed. Source images, multiplanar STS MIP, and 3D volume MIP reconstru ctions were reviewed. FINDINGS: There is excellent visualization of the major intracranial arteries out to the second-order branch ve ssels. There is no evidence for aneurysm, vessel truncation or stenosis, and no evidence for vascula r malformation. CONCLUSION: Negative for major branch vessel occlusion. Iftikhar Mittal MD FACR on April 27, 2017 at 15:35 Board Certified Radiologist. This report was verified electronically.
[2017-04-27] MEDS ORDERED: GADODIAMIDE PF 287 MG/ML 10 ML VIAL (for RAD MRI) IV PUSH ONE (15:52)
--- NOTE | 2017-04-27 17:22 | HHI.PR ---
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 Follow up labs--r/o myasthenia gravis (doubtful with no other sx) Diagnosis/Plan: Subjective Subjective Comments No acute events reported still with horizontal diplopia without change. Active Medications Current Medications Medications (Trade) Dose Ordered Sig/[place] Route Start Time Stop Time Status Last Admin (Tylenol) 650 mg Q4H PRN PO 04/24/17 14:45 (Zofran Inj) 4 mg Q6H PRN IVP 04/24/17 14:45 (Narcan Inj) 0.4 mg UNSCH PRN IV PUSH 04/24/17 14:45 (Marie-Colace) 1 tab BID PO 04/24/17 21:00 04/27/17 07:37 (Milk Of Magnesia Liq) 30 ml Q12H PRN PO 04/24/17 14:45 04/27/17 07:41 (Senokot) 17.2 mg Q12H PRN PO 04/24/17 14:45 (Dulcolax Supp) 10 mg DAILY PRN RECTAL 04/24/17 14:45 (Lactulose Liq) 30 ml DAILY PRN PO 04/24/17 14:45 (Cordarone) 100 mg EVERY OTHER DAY PO 04/26/17 09:00 04/26/17 08:46 (Lipitor) 20 mg HS PO 04/24/17 21:00 04/26/17 20:39 (Synthroid) 25 mcg DAILY@0600 PO 04/25/17 06:00 04/27/17 06:07 (Theragran) 1 tab DAILY PO 04/25/17 09:00 04/27/17 07:37 (Ecotrin Ec) 81 mg DAILY PO 04/25/17 09:00 04/27/17 07:37 (Flomax) 0.4 mg DAILY PO 04/25/17 11:00 04/27/17 07:37 Allergies Allergies Coded Allergies No Known Allergies (Verified Allergy, Unknown, 04/24/17) Exam I&O / VS Vital Signs Date Time Temp Pulse Resp B/P (MAP) Pulse Ox O2 Delivery O2 Flow Rate FiO2 04/27/17 16:00 98.4 70 20 133/71 (91) 94 04/27/17 16:00 71 04/27/17 13:17 Room Air 2/9/18 12:00 97.9 71 20 102/58 (73) 95 04/27/17 08:30 Room Air 04/27/17 08:00 97.6 73 20 136/74 (94) 96 04/27/17 08:00 78 04/27/17 04:00 97.8 70 18 120/58 (78) 95 04/27/17 04:00 78 04/27/17 00:00 97.8 87 18 119/60 (79) 98 04/27/17 00:00 69 04/26/17 20:00 73 04/26/17 20:00 97.3 76 16 98/58 (71) 97 Exam Comments alert, speech normal CN--pupils 2 mm symmetric and reactive. mild left CN 6 palsey motor--5/5 BUE, no drift, normal fine motor Objective Radiology Results MRI brain--normal for age (nonspecific change on DWI left basal ganglia--most likely artifact) MRA brain== normal Micro and Labs Laboratory Tests Test 04/27/17 05:11 White Blood Count 7.6 Red Blood Count 2.59 Hemoglobin 8.8 Hematocrit 25.9 Mean Corpuscular Volume 100.2 Mean Corpuscular Hemoglobin 34.2 Mean Corpuscular Hemoglobin Concent 34.2 Red Cell Distribution Width 13.0 Platelet Count 109 Mean Platelet Volume 10.5 Hematology Comments Blood Urea Nitrogen 25 Creatinine 1.35 Random Glucose 111 Albumin 2.7 Calcium Level 8.3 Phosphorus Level 1.9 Sodium Level 142 Potassium Level 4.2 Chloride Level 109 Carbon Dioxide Level 26.6 Anion Gap 6 Estimat Glomerular Filtration Rate 50 Total Creatine Kinase 565 Creatine Kinase MB 2.0 Creatine Kinase MB % 0.4 Troponin I 0.10 Sixto Sales MD PhD Apr 27, 2017 17:22
--- NOTE | 2017-04-27 17:44 | HHI.PR ---
Subjective Remarks still c/o double vision Objective Vitals Vital Signs Date Time Temp Pulse Resp B/P (MAP) Pulse Ox O2 Delivery O2 Flow Rate FiO2 04/27/17 16:00 98.4 70 20 133/71 (91) 94 04/27/17 16:00 71 04/27/17 13:17 Room Air 04/27/17 12:00 97.9 71 20 102/58 (73) 95 04/27/17 08:30 Room Air 04/27/17 08:00 97.6 73 20 136/74 (94) 96 04/27/17 08:00 78 04/27/17 04:00 97.8 70 18 120/58 (78) 95 04/27/17 04:00 78 04/27/17 00:00 97.8 87 18 119/60 (79) 98 04/27/17 00:00 69 04/26/17 20:00 73 04/26/17 20:00 97.3 76 16 98/58 (71) 97 I/O 04/26/17 04/26/17 04/26/17 04/27/17 04/27/17 04/27/17 07:00 15:00 23:00 07:00 15:00 23:00 Intake Total 1280 ml 600 ml 240 ml Output Total 600 ml 400 ml 750 ml Balance 680 ml 200 ml -510 ml Intake Oral 480 ml 600 ml 240 ml IV Total 800 ml Output Urine Total 600 ml 400 ml 750 ml # Bowel Movements 0 Result Diagram: 04/27/17 0511 04/27/17 0511 Imaging Last Impressions Head Magnetic Resonance Angiography 04/27/17 0000 Signed Impressions: Service Date/Time: Thursday, April 27, 2017 14:20 - CONCLUSION: Negative for major branch vessel occlusion. Iftikhar Mittal MD FACR Brain MRI 04/27/17 0000 Signed Impressions: Service Date/Time: Thursday, April 27, 2017 14:20 - CONCLUSION: Marked central and cortical atrophy Focal restricted diffusion basalganglia on the left without ADC confirmation. This is probably not related to an acute ischemic event. No parenchymal hemorrhage. Iftikhar Mittal MD FACR Head CT 04/24/17 1122 Signed Impressions: Service Date/Time: Monday, April 24, 2017 13:04 - CONCLUSION: 1. 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 2. Moderate periventricular white matter small vessel ischemic changes bilaterally. 3. Diffuse central cerebral atrophy. 4. No acute infarct, acute hemorrhage, mass effect or extra-axial fluid collections. Ned Aguilera MD Chest X-Ray 04/24/171121 Signed Impressions: Service Date/Time: Monday, April 24, 2017 11:37 - CONCLUSION: Abnormal chest appearance however technically suboptimal. Recommend good quality PA and lateral views of the chest. Nando Sewell MD Chest CT 04/24/171121 Signed Impressions: Service Date/Time: Monday, April 24, 2017 13:13 - CONCLUSION: 1. No acute intrathoracic trauma. 2. 8mm noncalcified nodular density within the right lower lobe which is indeterminate. This either represents a true pulmonary nodule or nodular infiltrate. Followup CT chest in 3 months may be helpful for further evaluation. 3. Minimal focal infiltrate within the right upper lobe. 4. Cardiomegaly and coronary artery calcifications. 5. 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 6. Degenerative changes and scoliosis of the thoracic spine. Ned Aguilera MD Cervical Spine CT 04/24/171121 Signed Impressions: Service Date/Time: Monday, April 24, 2017 13:06 - CONCLUSION: 1. No acute fracture or subluxation. 2. Moderately advanced degenerative spondylosis of the cervical spine. Barry Francois MD Abdomen/Pelvis CT 04/24/171121 Signed Impressions: Service Date/Time: Monday, April 24, 2017 13:12 - CONCLUSION: 1. No acute intra-abdominal trauma. 2. Enlarged prostate. 3. Distended urinary bladder. 4. Uncomplicated colonic diverticulosis. 5. Scattered subcentimeter intermediate density nodules arising from the lower pole the left kidney consistent with complex cysts or small solid lesions. Outpatient contrast enhanced CT may be helpful for further characterization if clinically indicated Ned Aguilera MD Radius/Ulna X-Ray 04/24/17 0000 Signed Impressions: Service Date/Time: Monday, April 24, 2017 11:38 - CONCLUSION: 1. Probable old ununited avulsion fracture of the ulnar styloid process. 2. No acute fracture or dislocation. 3. Diffuse osteopenia. Ned Aguilera MD Objective Remarks GENERAL: Thin appearing elderly male in no acute distress. Well-developed SKIN: Warm and dry. HEAD: Atraumatic. Normocephalic. EYES: Pupils equal and round. No scleral icterus. No injection or drainage. ENT: No nasal bleeding or discharge. Mucous membranes pink and moist. NECK: Trachea midline. No JVD. CARDIOVASCULAR: Regular rate and rhythm. S3, S4. II/ blowing holosystolic murmur apex. RESPIRATORY: No accessory muscle use. Clear to auscultation. Breath sounds equal bilaterally. GASTROINTESTINAL: Abdomen soft, non-tender, nondistended. Hepatic and splenic margins not palpable. MUSCULOSKELETAL: Extremities without clubbing, cyanosis, or edema. No obvious deformities. NEUROLOGICAL: Awake and alert. No obvious cranial nerve deficits. Motor grossly within normal limits. Five out of 5 muscle strength in the arms and legs. Normal speech. PSYCHIATRIC: Appropriate mood and affect; insight and judgment normal. Procedures None Medications and IVs Current Medications Medications (Trade) Dose Ordered Sig/Adair Route Start Time Stop Time Status Last Admin (Tylenol) 650 mg Q4H PRN PO 04/24/17 14:45 (Zofran Inj) 4 mg Q6H PRN IVP 04/24/17 14:45 (Narcan Inj) 0.4 mg UNSCH PRN IV PUSH 04/24/17 14:45 (Marie-Colace) 1 tab BID PO 04/24/17 21:00 04/27/17 07:37 (Milk Of Magnesia Liq) 30 ml Q12H PRN PO 04/24/17 14:45 04/27/17 07:41 (Senokot) 17.2 mg Q12H PRN PO 04/24/17 14:45 (Dulcolax Supp) 10 mg DAILY PRN RECTAL 04/24/17 14:45 (Lactulose Liq) 30 ml DAILY PRN PO 04/24/17 14:45 (Cordarone) 100 mg EVERY OTHER DAY PO 04/26/17 09:00 04/26/17 08:46 (Lipitor) 20 mg HS PO 04/24/17 21:00 04/26/17 20:39 (Synthroid) 25 mcg DAILY@0600 PO 04/25/17 06:00 04/27/17 06:07 (Theragran) 1 tab DAILY PO 04/25/17 09:00 2/9/18 07:37 (Ecotrin Ec) 81 mg DAILY PO 04/25/17 09:00 04/27/17 07:37 (Flomax) 0.4 mg DAILY PO 04/25/17 11:00 04/27/17 07:37 A/P Problem List: (1) Fall ICD Code: W19.XXXA - Unspecified fall, initial encounter Plan: Suspected syncopal episode, but etiology uncertain. Patient states he has sustained multiple falls in the recent past. Cardiology consulted, pacemaker interrogation ordered and pending, as per cardiology doubt cardiac etiology. Echocardiogram was ordered as well which is pending. 04/26 the patient complains of double vision. I will order an MRI of the brain and consult neurology. 04/27 and MRI shows marked central and cortical atrophy restricted diffusion basal ganglia on the left without ADC confirmation. Probably not related to acute ischemic event. No parenchymal hemorrhage. (2) Confusion ICD Code: R41.0 - Disorientation, unspecified Status: Resolved Plan: Confusion seems to have resolved. Patient is awake and alert oriented 3. (3) Anemia ICD Code: D64.9 - Anemia Status: Acute Plan: The patient has chronic anemia. Upon review of records the patient has had an EGD recently on June 12, 2016 which did not reveal any active bleeding. The patient was recommended to follow-up as an outpatient for capsule endoscopy study. Hemoglobin is stable at 9.1. Continue to monitor H&H and follow-up as an outpatient with GI. 04/26 Hemoglobin trending down. Check stool guaiac. The patient denies any melena or hematochezia. Monitor CBC and if hemoglobin continues to trend down will consult GI. 04/27 stool guaiac pending, hemoglobin stable. Possibly related to hemodilution. (4) Acute on chronic kidney disease, stage 3 ICD Code: N18.3 - Chronic kidney disease, stage 3 (moderate); N28.9 - Acute on chronic kidney disease, stage 3 Status: Acute Plan: Baseline creatinine is around 1.7-1.8. Creatinine on admission was 2.5 which now trended down to 1.74. Acute kidney injury thought to be secondary to prerenal azotemia initially. Nephrology consulted who ordered a CT abdomen and pelvis which suggested BPH. A Esparza catheter was placed and the patient was started on Flomax. Creatinine is now trending down. Acute kidney injury likely secondary to postobstructive nephropathy. Patient cleared to be discharged by nephrology. (5) CAD (coronary artery disease) ICD Code: I25.9 - CAD (coronary artery disease) Status: Chronic Plan: Seems to be stable. Patient seen by cardiology. Follow cardiology recommendations. Continue aspirin, Lipitor, furosemide held. (6) CHF (congestive heart failure) ICD Code: I50.9 - Heart failure, unspecified Status: Acute Plan: Seems to be stable. Monitor for fluid overload since patient is getting IV fluids. Lasix held, continue to hold. Echocardiogram obtained on June 10, 2016 showed a systolic function that was at the lower limit of normal at 50%. Patient also showed a dilated right atrium and moderate to severe tricuspid regurgitation. Patient also had pulmonary hypertension with a PA pressure of 68 mm Hg. (7) Paroxysmal atrial fibrillation ICD Code: I48.0 - Paroxysmal atrial fibrillation Status: Chronic Plan: Remains normal sinus rhythm. The patient was placed on low-dose amiodarone. Patient is not on chronic anticoagulant and due to elevated fall risk. (8) Generalized weakness ICD Code: R53.1 - Weakness Status: Acute Plan: Physical therapy evaluation ordered. Physical therapy recommended rehab. (9) Rhabdomyolysis ICD Code: M62.82 - Rhabdomyolysis Status: Acute Plan: Patient also presented with elevated CPK of 4538. The patient has been started on IV fluids and CPKs trending down. Continue to monitor CPK and continue IV fluids. 04/26 CPK trending down - 1137 today, Continue IV fluids and monitor CPK. 04/27 CPK markedly reduced down to 565. (10) Hypothyroidism ICD Code: E03.9 - Hypothyroidism, unspecified Plan: On levothyroxine. Continue. Last TSH was elevated at 5.360 with normal free T4 on May 2016. I will recheck TSH and free T4. (11) Thrombocytopenia ICD Code: D69.6 - Thrombocytopenia, unspecified Status: Chronic Plan: Continue to monitor platelets. Patient not with active bleeding. 04/27 Platelet count is trending up. Assessment and Plan DVT prophylaxis. SCDs while in bed. No chemoprophylaxis indicated given history of chronic anemia and also recent history of major GI bleed with transfusion of several units of packed red blood cells on May 2016. Discharge Planning Pending stabilization of hemoglobin and improvement of ck. Problem Qualifiers (1) Fall: Qualified Codes: W19.XXXD - Unspecified fall, subsequent encounter (2) Anemia: Qualified Codes: D64.9 - Anemia, unspecified (3) CAD (coronary artery disease): Qualified Codes: I25.10 - Atherosclerotic heart disease of [place] coronary artery without angina pectoris (4) CHF (congestive heart failure): (5) Rhabdomyolysis: Qualified Codes: T79.6XXD - Traumatic ischemia of muscle, subsequent encounter (6) Hypothyroidism: Qualified Codes: E03.9 - Hypothyroidism, unspecified Zacarias Bird MD Apr 27, 2017 17:44
[2017-04-27] MEDS: ATORVASTATIN 20 MG TAB PO SCH (21:03)
[2017-04-28] VITALS: BP 153/73; PULSE 74; PULSE 77; RESP 20; TEMP 98.3; O2SAT 96
[2017-04-28 04:00] VITALS: BP 140/112; PULSE 75; PULSE 78; RESP 20; TEMP 97.5; O2SAT 94
[2017-04-28] MEDS: LEVOTHYROXINE SODIUM 25 MCG TAB PO SCH (06:13)
[2017-04-28 08:00] VITALS: BP 145/69; PULSE 74; PULSE 80; RESP 20; TEMP 98.1; O2SAT 94
[2017-04-28 09:05] LABS: BICARBONATE 28.5 MEQ/L (21.0-32.0); CREATININE 1.34 MG/DL (0.60-1.30)
[2017-04-28] MEDS: TAMSULOSIN HCL 0.4 MG CAP PO SCH (09:17)
[2017-04-28] MEDS: AMIODARONE 200 MG TAB PO SCH (09:17)
[2017-04-28] MEDS: DOCUSATE SODIUM 50 MG/SENNA 8.6 MG TAB PO SCH (09:17)
[2017-04-28] MEDS: ASPIRIN EC 81 MG TABEC PO SCH (09:17)
[2017-04-28] MEDS: MULTIVITAMIN TAB PO SCH (09:17)
[2017-04-28] MEDS ORDERED: ECASA81 PO (10:42)
[2017-04-28] MEDS ORDERED: TAMS5CAP PO (10:42)
--- NOTE | 2017-04-28 10:45 | HHI.DCPOC ---
Discharge Care Plan Diagnosis: (1) Fall (2) Anemia (3) Acute on chronic kidney disease, stage 3 (4) Rhabdomyolysis (5) CAD (coronary artery disease) (6) History of cardiac pacemaker (7) Confusion (8) Hypothyroidism (9) Generalized weakness (10) Paroxysmal atrial fibrillation (11) Thrombocytopenia Goals to Promote Your Health * To prevent worsening of your condition and complications * To maintain your health at the optimal level Directions to Meet Your Goals Take your medications as prescribed Follow your dietary instruction Follow activity as directed Keep your appointments as scheduled Take your immunizations and boosters as scheduled If your symptoms worsen call your PCP, if no PCP go to Urgent Care Center or Emergency Room Smoking is Dangerous to Your Health. Avoid second hand smoke Call the 24-hour hour crisis hotline for domestic abuse at Zacarias Bird MD Apr 28, 2017 10:45
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
[2017-04-28 12:00] VITALS: BP 101/53; PULSE 70; PULSE 76; RESP 20; TEMP 98.3; O2SAT 92
[2017-05-01 11:52] LABS: STRIATED MUCLE AB TITER ND (<1:40)
== END 2017-04-28 14:51 | DRG 683 ==
LOC: NEPE 10:33 → NEDA 14:33 → N04A 17:38
PROVIDERS: ADMIT Hospitalist; ATTEND Hospitalist
DX: N17.9 Acute kidney failure, unspecified (principal); M62.82 Rhabdomyolysis; E87.0 Hyperosmolality and hypernatremia; H49.22 Sixth [abducent] nerve palsy, left eye; N13.8 Other obstructive and reflux uropathy; I13.0 Hypertensive heart and chronic kidney disease with heart failure and stage 1 through stage 4 chronic kidney disease, or unspecified chronic kidney disease; I50.9 Heart failure, unspecified; I48.0 Paroxysmal atrial fibrillation; I27.20 Pulmonary hypertension, unspecified; D69.6 Thrombocytopenia, unspecified; I08.3 Combined rheumatic disorders of mitral, aortic and tricuspid valves; E03.9 Hypothyroidism, unspecified; E86.0 Dehydration; E78.5 Hyperlipidemia, unspecified; D63.1 Anemia in chronic kidney disease; S20.229A Contusion of unspecified back wall of thorax, initial encounter; N18.3 Chronic kidney disease, stage 3 (moderate); I25.10 Atherosclerotic heart disease of native coronary artery without angina pectoris; S80.10XA Contusion of unspecified lower leg, initial encounter; S40.029A Contusion of unspecified upper arm, initial encounter; N40.1 Benign prostatic hyperplasia with lower urinary tract symptoms; R29.6 Repeated falls; Y92.009 Unspecified place in unspecified non-institutional (private) residence as the place of occurrence of the external cause; W19.XXXA Unspecified fall, initial encounter; Z79.01 Long term (current) use of anticoagulants; Z86.711 Personal history of pulmonary embolism; Z95.0 Presence of cardiac pacemaker; Z95.1 Presence of aortocoronary bypass graft; Z95.3 Presence of xenogenic heart valve
CPT/HCPCS: 70450; 70544; 70553; 71045; 71250; 72125; 73090; 74176; 80048; 80053; 80069; 81001; 82550; 82552; 82607; 83519; 83735; 84439; 84443; 84484; 85007; 85014; 85018; 85025; 85027; 85610; 85730; 86255; 86850; 86900; 86901; 90471; 90714; 93005; 93306; 96360; A9579; J7030; L0150